=== PATIENT | male | born 1945 | race Caucasian/White ===

== ENCOUNTER 2016-12-11 10:14 | Outpatient (CLI) | payer MEDICARE, BC ==
[2016-12-11 18:33] LABS: BASOPHILS # (AUTO) 0.1 10^3/uL (0.0-0.1); BASOPHILS % (AUTO) 1.9 %; EOSINOPHILS # (AUTO) 0.2 10^3/uL (0.0-0.7); EOSINOPHILS % (AUTO) 3.9 %; HCT - HEMATOCRIT 46.7 % (42.0-52.0); HGB - HEMOGLOBIN 15.9 g/dL (14.0-18.0); LYMPHOCYTES # (AUTO) 1.7 10^3/uL (1.5-3.5); LYMPHOCYTES % (AUTO) 36.5 %; MEAN CORPUSCULAR HEMOGLOBIN 31.7 pg (27.0-31.0); MEAN CORPUSCULAR HGB CONC 34.2 g/dL (32.0-36.0); MEAN CORPUSCULAR VOLUME 92.9 fL (80.0-94.0); MEAN PLATELET VOLUME 8.9 fL (7.4-11.4); MONOCYTES # (AUTO) 0.4 10^3/uL (0.0-1.0); MONOCYTES % (AUTO) 9.1 %; NEUTROPHILS # (AUTO) 2.3 10^3/uL (1.5-6.6); NEUTROPHILS % (AUTO) 48.6 %; NUCLEATED RED BLOOD CELLS AUTO 0.2 /100WBC; RED BLOOD COUNT 5.03 10^6/uL (4.70-6.10); RED CELL DISTRIBUTION WIDTH 14.1 % (12.0-15.0); UNCORRECTED WHITE BLOOD COUNT 4.7 x10^3/uL; WHITE BLOOD COUNT 4.7 x10^3/uL (4.8-10.8)
[2016-12-11 18:52] LABS: ALBUMIN/GLOBULIN RATIO 1.6 (1.0-2.2); BILIRUBIN,TOTAL 1.2 mg/dL (0.2-1.0); BUN - BLOOD UREA NITROGEN 21 mg/dL (6-20); CALCIUM 9.3 mg/dL (8.5-10.3); CARBON DIOXIDE - CO2 27 mmol/L (21-32); CHLORIDE 102 mmol/L (101-111); CHOL/HDL RATIO 4.3 (<5.0); CHOLESTEROL 255 mg/dL; CREATININE 0.8 mg/dL (0.6-1.2); GFR - MDRD 96 (>89); GLUCOSE 142 mg/dL (70-100); HDL CHOLESTEROL 59 mg/dL; LDL/HDL RATIO 2.9 (<3.6); POTASSIUM 4.2 mmol/L (3.5-5.0); SODIUM 138 mmol/L (135-145); TRIGLYCERIDES 121 mg/dL; VLDL CHOLESTEROL 24 mg/dL
[2016-12-11 19:21] LABS: HEMOGLOBIN A1C 0.84 g/dL
== END 2016-12-11 10:15 | disposition home or self-care (01) ==
LOC: LAB.F 10:14
PROVIDERS: ATTEND Nurse Practitioner Family
DX: E11.9 Type 2 diabetes mellitus without complications (principal); C61 Malignant neoplasm of prostate; E78.5 Hyperlipidemia, unspecified; I10 Essential (primary) hypertension
CPT/HCPCS: 36415; 80053; 80061; 82043; 83036; 84443; 85025; G0103; 84153

== ENCOUNTER 2017-01-23 15:34 | Outpatient (CLI) | payer MEDICARE, BC ==
[2017-01-23 15:59] LABS: BASOPHILS # (AUTO) 0.1 10^3/uL (0.0-0.1); BASOPHILS % (AUTO) 1.8 %; EOSINOPHILS # (AUTO) 0.1 10^3/uL (0.0-0.7); EOSINOPHILS % (AUTO) 2.1 %; HCT - HEMATOCRIT 41.6 % (42.0-52.0); HGB - HEMOGLOBIN 13.9 g/dL (14.0-18.0); LYMPHOCYTES # (AUTO) 1.6 10^3/uL (1.5-3.5); LYMPHOCYTES % (AUTO) 32.2 %; MEAN CORPUSCULAR HEMOGLOBIN 31.1 pg (27.0-31.0); MEAN CORPUSCULAR HGB CONC 33.5 g/dL (32.0-36.0); MEAN CORPUSCULAR VOLUME 92.7 fL (80.0-94.0); MEAN PLATELET VOLUME 7.9 fL (7.4-11.4); MONOCYTES # (AUTO) 0.4 10^3/uL (0.0-1.0); MONOCYTES % (AUTO) 8.2 %; NEUTROPHILS # (AUTO) 2.8 10^3/uL (1.5-6.6); NEUTROPHILS % (AUTO) 55.7 %; RED BLOOD COUNT 4.49 10^6/uL (4.70-6.10); RED CELL DISTRIBUTION WIDTH 14.4 % (12.0-15.0); UNCORRECTED WHITE BLOOD COUNT 5.1 x10^3/uL; WHITE BLOOD COUNT 5.1 x10^3/uL (4.8-10.8)
[2017-01-23 16:07] LABS: CALCIUM 9.3 mg/dL (8.5-10.3); POTASSIUM 4.1 mmol/L (3.5-5.0)
== END 2017-01-23 15:35 | disposition home or self-care (01) ==
LOC: LAB 15:34
PROVIDERS: ATTEND Nurse Practitioner Family
DX: I10 Essential (primary) hypertension (principal)
CPT/HCPCS: 36415; 80048; 85025; 85610

== ENCOUNTER 2017-08-14 09:18 | Outpatient (CLI) | payer MEDICARE, BC ==
[2017-08-14 15:28] LABS: HB2 TOTAL 16.4 g/dL; HEMOGLOBIN A1C 0.69 g/dL
== END 2017-08-14 09:19 | disposition home or self-care (01) ==
LOC: LAB.F 09:18
PROVIDERS: ATTEND Nurse Practitioner Family
DX: E11.9 Type 2 diabetes mellitus without complications (principal)
CPT/HCPCS: 36415; 83036

== ENCOUNTER 2018-03-31 08:38 | Outpatient (CLI) | payer MEDICARE, BC ==
[2018-03-31 10:35] LABS: BASOPHILS # (AUTO) 0.1 10^3/uL (0.0-0.1); BASOPHILS % (AUTO) 1.3 %; EOSINOPHILS # (AUTO) 0.1 10^3/uL (0.0-0.7); EOSINOPHILS % (AUTO) 2.8 %; HGB - HEMOGLOBIN 14.8 g/dL (14.0-18.0); LYMPHOCYTES # (AUTO) 1.7 10^3/uL (1.5-3.5); LYMPHOCYTES % (AUTO) 38.5 %; MEAN CORPUSCULAR HEMOGLOBIN 31.7 pg (27.0-31.0); MEAN CORPUSCULAR HGB CONC 34.5 g/dL (32.0-36.0); MEAN PLATELET VOLUME 8.8 fL (7.4-11.4); MONOCYTES # (AUTO) 0.4 10^3/uL (0.0-1.0); MONOCYTES % (AUTO) 9.2 %; NEUTROPHILS # (AUTO) 2.1 10^3/uL (1.5-6.6); NEUTROPHILS % (AUTO) 48.2 %; PLT - PLATELET COUNT 203 10^3/uL (130-450); RED BLOOD COUNT 4.66 10^6/uL (4.70-6.10); RED CELL DISTRIBUTION WIDTH 13.4 % (12.0-15.0); WHITE BLOOD COUNT 4.4 x10^3/uL (4.8-10.8)
[2018-03-31 10:46] LABS: ALBUMIN 4.2 g/dL (3.2-5.5); ALBUMIN/GLOBULIN RATIO 1.6 (1.0-2.2); ALKALINE PHOSPHATASE 67 IU/L (42-121); ALT ALANINE AMINOTRANSFERASE 30 IU/L (10-60); AST ASPARTATE AMINOTRANSFERASE 23 IU/L (10-42); BILIRUBIN,TOTAL 0.9 mg/dL (0.2-1.0); BUN - BLOOD UREA NITROGEN 20 mg/dL (6-20); CALCIUM 8.9 mg/dL (8.5-10.3); CARBON DIOXIDE - CO2 28 mmol/L (21-32); CHLORIDE 101 mmol/L (101-111); CHOL/HDL RATIO 4.6 (<5.0); CHOLESTEROL 260 mg/dL; CREATININE 0.9 mg/dL (0.6-1.2); GFR - MDRD 83 (>89); GLUCOSE 146 mg/dL (70-100); HDL CHOLESTEROL 57 mg/dL; LDL CHOLESTEROL,CALCULATED 172 mg/dL; SODIUM 134 mmol/L (135-145); TOTAL PROTEIN 6.8 g/dL (6.7-8.2); VLDL CHOLESTEROL 31 mg/dL
[2018-03-31 10:54] LABS: HB2 TOTAL 16.5 g/dL; HEMOGLOBIN A1C 0.77 g/dL; HEMOGLOBIN A1C % 6.4 % (4.6-6.2)
== END 2018-03-31 08:39 | disposition home or self-care (01) ==
LOC: LAB.F 08:38
PROVIDERS: ATTEND Nurse Practitioner Family
DX: E11.9 Type 2 diabetes mellitus without complications (principal); C61 Malignant neoplasm of prostate; E78.5 Hyperlipidemia, unspecified; I10 Essential (primary) hypertension; D64.9 Anemia, unspecified
CPT/HCPCS: 36415; 80053; 80061; 82043; 83036; 83721; 84153; 84443; 85025

== ENCOUNTER 2019-01-25 07:38 | Outpatient (CLI) | payer MEDICARE, BC ==
[2019-01-25 08:14] LABS: CHOL/HDL RATIO 4.3 (<5.0); CHOLESTEROL 240 mg/dL; HDL CHOLESTEROL 56 mg/dL; LDL CHOLESTEROL,CALCULATED 160 mg/dL; LDL/HDL RATIO 2.9 (<3.6); VLDL CHOLESTEROL 24 mg/dL
[2019-01-25 08:18] LABS: HB2 TOTAL 15.9 g/dL; HEMOGLOBIN A1C 0.67 g/dL
== END 2019-01-25 07:39 | disposition home or self-care (01) ==
LOC: LAB 07:38
PROVIDERS: ATTEND Registered Nurse
DX: E11.9 Type 2 diabetes mellitus without complications (principal)
CPT/HCPCS: 36415; 80061; 83036; 83721

== ENCOUNTER 2019-04-10 18:23 | Inpatient (IN) | payer MEDICARE, BC ==
[2019-04-10] MEDS ORDERED: LIDOCAINE VISCOUS 2% 15 ML UDC MM STA (18:57)
[2019-04-10] MEDS ORDERED: SUCRALFATE 1 GM/10 ML UDC PO STA (18:57)
[2019-04-10] MEDS ORDERED: MAG HYDROX/AL HYDROX/SIMETH 30 ML UDC PO STA (18:57)
[2019-04-10] MEDS ORDERED: ONDANSETRON ODT 4 MG TABLET TL STA (18:57)
[2019-04-10 19:19] LABS: BASOPHILS # (AUTO) 0.1 10^3/uL (0.0-0.1); BASOPHILS % (AUTO) 0.4 %; EOSINOPHILS % (AUTO) 0.1 %; HGB - HEMOGLOBIN 15.2 g/dL (14.0-18.0); LYMPHOCYTES # (AUTO) 1.3 10^3/uL (1.5-3.5); LYMPHOCYTES % (AUTO) 10.5 %; MEAN CORPUSCULAR HEMOGLOBIN 30.2 pg (27.0-31.0); MEAN CORPUSCULAR HGB CONC 33.2 g/dL (32.0-36.0); MEAN CORPUSCULAR VOLUME 90.9 fL (80.0-94.0); MONOCYTES # (AUTO) 0.7 10^3/uL (0.0-1.0); MONOCYTES % (AUTO) 5.7 %; NEUTROPHILS # (AUTO) 10.2 10^3/uL (1.5-6.6); NEUTROPHILS % (AUTO) 82.7 %; PLT - PLATELET COUNT 249 10^3/uL (130-450); RED BLOOD COUNT 5.04 10^6/uL (4.70-6.10); RED CELL DISTRIBUTION WIDTH 13.2 % (12.0-15.0); WHITE BLOOD COUNT 12.3 x10^3/uL (4.8-10.8)
[2019-04-10 19:27] LABS: BILIRUBIN,URINE NEGATIVE (NEGATIVE); GLUCOSE, URINE (UA) 250 mg/dL (NEGATIVE); KETONES,URINE (UA) 15 mg/dL (NEGATIVE); LEUKOCYTE ESTERASE, URINE NEGATIVE (NEGATIVE); NITRITE,URINE NEGATIVE (NEGATIVE); OCCULT BLOOD,URINE NEGATIVE (NEGATIVE); PROTEIN,URINE NEGATIVE (NEGATIVE); UROBILINOGEN,URINE 0.2 (NORMAL) E.U./dL (NORMAL)
[2019-04-10 19:31] LABS: CLARITY,URINE CLEAR (CLEAR)
[2019-04-10 19:48] LABS: ALBUMIN 4.2 g/dL (3.2-5.5); ALBUMIN/GLOBULIN RATIO 1.6 (1.0-2.2); BILIRUBIN,TOTAL 0.9 mg/dL (0.2-1.0); CALCIUM 9.2 mg/dL (8.5-10.3); CREATININE 0.9 mg/dL (0.6-1.2); TOTAL PROTEIN 6.8 g/dL (6.7-8.2)
[2019-04-10] MEDS ORDERED: IOVERSOL 320 100 ML VIAL IVP ONE ×2 (20:02→20:40)
--- NOTE | 2019-04-10 20:33 | ED Physician Documentation ---
History of Present Illness - Stated complaint Stated Complaint: AB PX - Chief complaint Chief Complaint: Abd Pain - History obtained from History obtained from: Patient - History of Present Illness Timing: Today Pain level max: 5 Pain level now: 4 Improved by: nothing Worsened by: eating, drinking - Additonal information Additional information: epigastric pain, vomiting and diarrhea today. Review of Systems Ten Systems: 10 systems reviewed and negative Constitutional: denies: Fever, Chills Nose: denies: Rhinorrhea / runny nose, Congestion GI: denies: Vomiting, Diarrhea Skin: denies: Rash Musculoskeletal: denies: Neck pain, Back pain Neurologic: denies: Headache PD PAST MEDICAL HISTORY - Past Medical History Past Medical History: Yes Cardiovascular: Hypertension Respiratory: None Endocrine/Autoimmune: None GI: None : None HEENT: None Psych: None Musculoskeletal: None Derm: None - Past Surgical History General: Colonoscopy Ortho: Other HEENT: Tonsil/Adenoidectomy - Present Medications Home Medications: Ambulatory Orders Medication Instructions Recorded Confirmed Felodipine [Felodipine ER] 5 mg PO DAILY 03/15/15 12/11/15 Lisinopril 20 mg PO DAILY 03/15/15 12/11/15 Metoprolol Succinate 50 mg PO DAILY 03/15/15 12/11/15 Lidocaine Patch 5% [Lidoderm Patch] 1 each TOP DAILY PRN #10 patch 12/11/15 - Allergies Allergies/Adverse Reactions: Allergies Allergy/AdvReac Type Severity Reaction Status Date / Time No Known Drug Allergies Allergy Verified 04/10/19 18:26 - Social History Does the pt smoke?: No Smoking Status: Never smoker Does the pt drink ETOH?: Yes Does the pt have substance abuse?: No - Immunizations Immunizations are current?: Yes PD ED PE NORMAL - Vitals Vital signs reviewed: Yes - General General: Alert and oriented X 3, No acute distress, Well developed/nourished - HEENT HEENT: PERRL, Moist mucous membranes - Neck Neck: Supple, no meningeal sign - Cardiac Cardiac: RRR, Strong equal pulses - Respiratory Respiratory: No respiratory distress, Clear bilaterally - Abdomen Abdomen: Soft, Non distended, Other (Tender to palpation epigastric without peritoneal signs) - Derm Derm: Warm and dry, No rash - Extremities Extremities: No edema - Neuro Neuro: Alert and oriented X 3 - Psych Psych: Normal mood, Normal affect Results - Vitals Vitals: Vital Signs - 24 hr 04/10/19 04/10/19 18:26 21:06 Temperature 36.8 C Heart Rate 58 L 62 Respiratory 18 15 Rate Blood Pressure 156/67 H 179/76 H O2 Saturation 98 95 Oxygen O2 Source Room air - Labs Labs: Laboratory Tests 04/10/19 04/10/19 04/10/19 18:40 18:40 19:13 WBC 12.3 H RBC 5.04 Hgb 15.2 Hct 45.8 MCV 90.9 MCH 30.2 MCHC 33.2 RDW 13.2 Plt Count 249 MPV 11.0 Neut # (Auto) 10.2 H Lymph # (Auto) 1.3 L [place] # (Auto) 0.7 Eos # (Auto) 0.0 Baso # (Auto) 0.1 Absolute Nucleated RBC 0.00 Nucleated RBC % 0.0 Sodium 136 Potassium 3.8 Chloride 99 L Carbon Dioxide 25 Anion Gap 12.0 BUN 19 Creatinine 0.9 Estimated GFR (MDRD) 83 L Glucose 252 H Calcium 9.2 Total Bilirubin 0.9 AST 19 ALT 24 Alkaline Phosphatase 68 Total Protein 6.8 Albumin 4.2 Globulin 2.6 Albumin/Globulin Ratio 1.6 Lipase 902 H Urine Color YELLOW Urine Clarity CLEAR Urine pH 5.0 Ur Specific [place] 1.025 Urine Protein NEGATIVE Urine Glucose (UA) 250 H Urine Ketones 15 H Urine Occult Blood NEGATIVE Urine Nitrite NEGATIVE Urine Bilirubin NEGATIVE Urine Urobilinogen 0.2 (NORMAL) Ur Leukocyte Esterase NEGATIVE Ur Microscopic Review NOT INDICATED Urine Culture Comments NOT INDICATED - Rads (name of study) CT abdomen pelvis Radiology: Prelim report reviewed, EMP read contemporaneously, See rad report (1. Findings consistent with acute interstitial edematous pancreatitis. The re lative hypoenhancement of the pancreatic head and neck may reflect impending necrosis. 2. Inflammatory ascites extends into the mesentery, right paracolic gutter and into the level of the right pelvic sidewall. No discrete fluid collections are seen. 3. Likely reactive adjacent duodenitis noted. ) PD MEDICAL DECISION MAKING - ED course Complexity details: reviewed results, re-evaluated patient, considered differential, d/w patient ED course: Patient presents to the emergency department was found to have pancreatitis. Likely secondary to his lisinopril. No evidence of gallbladder disease. No evidence of gallstones. He is nonalcoholic. Does not drink heavily. Pain well controlled. We will admit the patient for further care. Discussed the case with Dr. Bailon, hospitalist who accepts This document was made in part using voice recognition software. While efforts are made to proofread this document, sound alike and grammatical errors may occur. Departure - Departure Disposition: 66 [facility] DC/Xfer Clinical Impression: Pancreatitis Qualifiers: Chronicity: acute Pancreatitis type: drug induced Acute pancreatitis complication: unspecified Qualified Code(s): K85.30 - Drug induced acute pancreatitis without necrosis or infection Condition: Stable Discharge Date/Time: 04/10/19 22:25
--- NOTE | 2019-04-10 21:02 | CT Report ---
Reason: abd pain, pancreatitis Procedure Date: 04/10/2019 Accession Number: [id number] / [id number] Procedure: CT - Abdomen/Pelvis W CPT Code: Final Report FULL RESULT: EXAM: CT ABDOMEN AND PELVIS EXAM DATE: 04/10/2019 08:24 PM. CLINICAL HISTORY: Abd pain, pancreatitis. COMPARISONS: None. TECHNIQUE: Routine helical CT imaging was performed through the abdomen and pelvis. IV contrast: 100 ML OPTIRAY 320. Enteric contrast: No. Reconstructions: Coronal and sagittal. In accordance with CT protocol optimization, one or more of the following dose reduction techniques were utilized for this exam: automated exposure control, adjustment of mA and/or KV based on patient size, or use of iterative reconstructive technique. FINDINGS: Lung Bases: Unremarkable. Liver: No focal liver lesions seen. Gallbladder/Bile Ducts: Unremarkable gallbladder without radiopaque gallstones on CT. No biliary dilation. Spleen: Small hypoattenuating inferior splenic lesion could reflect a small benign angiomatous lesion or cyst. Small accessory splenule noted. Pancreas: Peripancreatic fluid and fat stranding is consistent with acute pancreatitis. No ductal dilation. No discrete fluid collections. Mild hypoattenuation of the pancreatic head and neck is seen. No intrapancreatic calcifications. Adrenal Glands: Normal. Kidneys: Small hypoattenuating cortical lesions are consistent with cysts.. No masses or hydronephrosis. Peritoneal Cavity/Bowel: Unremarkable stomach. Wall thickening and hyperemia of the duodenum likely reflects reactive inflammation. Small bowel loops are normal in caliber without signs of wall thickening or hyperemia. Appendix appears normal. Mesenteric and right paracolic gutter ascites extending to the pelvic sidewall likely reflect reactive inflammatory ascites from pancreatitis. No pneumoperitoneum. Pelvic Organs: Unremarkable urinary bladder for degree of distention. Prostate is not seen, possibly surgically absent. No enlarged pelvic lymph nodes. Vasculature: Atherosclerotic calcification. No aneurysms. Bones: Degenerative disk disease in the spine. Lucent lesion in L2 is possibly a vertebral hemangioma. Other: Small fat-containing left inguinal hernia. IMPRESSION: 1. Findings consistent with acute interstitial edematous pancreatitis. The relative hypoenhancement of the pancreatic head and neck may reflect impending necrosis. 2. Inflammatory ascites extends into the mesentery, right paracolic gutter and into the level of the right pelvic sidewall. No discrete fluid collections are seen. 3. Likely reactive adjacent duodenitis noted. RADIA
[2019-04-10] MEDS ORDERED: SODIUM CHLORIDE 0.9% 1,000 ML IV ONE ×3 (21:04→22:37)
[2019-04-10] MEDS ORDERED: HYDROmorphone 1 MG/ML CARPUJECT IVP STA (21:04)
[2019-04-10] MEDS ORDERED: ONDANSETRON 4 MG/2 ML VIAL IVP STA (21:04)
--- NOTE | 2019-04-10 21:38 | HISTORY & PHYSICAL EXAMINATION ---
Chief Complaint - Chief Complaint Chief Complaint: epigastric abd pain, n/v History of Present Illness - Admitted From Admitted From:: [facility] - History Obtained From Records Reviewed: yes History obtained from: patient - History of Present Illness HPI Comment/Other: Patient is a 74 y/o male who presented to the ED with epigastric pain, nausea an d vomiting. His symptoms started around noon today while he was watching TV. He had just eaten some cheese and bologna prior to onset of his symptoms. In the morning he had taking his grandson to a breakfast event they had at his school. He had pancakes and sausage. He denied any recent trauma or travel. He drinks occasionally but not significantly. He denied chest pain, dyspnea, fever or chills. He had 2 episodes of diarrhea. In the ED work up included a CT of the abdomen/ pelvis which showed acute interstitial pancreatitis with possibility of impending necrosis. Lipase level was 902. At the time of my exam his pain was 6/10. As a result of his presentation, he is being admitted for further treatment. 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 father: Acoholism. Liver cirrhosis. at age 60 Living arrangement: At home Living Situation: With family Social History Notes: He denies tobacco or illicit drug use. He drinks occasionally - POLST Patient has POLST: No POLST Status: Full Code Meds/Allgy - Home Medications Home Medications: Ambulatory Orders Medication Instructions Recorded Confirmed Felodipine [Felodipine ER] 5 mg PO DAILY 03/15/15 12/11/15 Lisinopril 20 mg PO DAILY 03/15/15 12/11/15 Metoprolol Succinate 50 mg PO DAILY 03/15/15 12/11/15 Lidocaine Patch 5% [Lidoderm Patch] 1 each TOP DAILY PRN #10 patch 12/11/15 - Allergies Allergies/Adverse Reactions: Allergies Allergy/AdvReac Type Severity Reaction Status Date / Time No Known Drug Allergies Allergy Verified 04/10/19 18:26 Review of Systems - Constitutional Constitutional: denies: Fatigue, Fever, Chills - Eyes Eyes: denies: Pain, Vision loss, Dipolpia - Ears, Nose & Throat Ears, Nose & Throat: denies: Vertigo, Sore throat - Cardiovascular Cariovascular: denies: Irregular heart rate, Chest pain, Edema, Lightheadedness, Syncope, Exertional dyspnea, Decr. exercise tolerance - Respiratory Respiratory: denies: Cough, Wheezing, SOB at rest, SOB with exertion - Gastrointestinal Gastrointestinal: reports: Abdominal pain, Diarrhea, Nausea, Vomiting. denies: Abdominal distention, Coffee grounds emesis, Reflux/heartburn - Genitourinary Genitourinary: denies: Dysuria, Frequency, Urgency, Hematuria, Incontinence, Flank pain, Nocturia, Urethral discharge - Musculoskeletal Musculoskeletal: denies: Muscle pain, Back pain, Muscle aches - Integumentary Integumentary: denies: Rash, Pruritis, Lesions, Dryness - Neurological Neurological: denies: General weakness, Focal weakness, Headache, Dizziness - Psychiatric Psychiatric: denies: Depression, Anxiety - Endocrine Endocrine: denies: Polyuria, Polydypsia - Hematologic/Lymphatic Hematologic/Lymphatic: denies: Anemia Prior Level of Functionality: Patient is independent of activities of daily living Exam - Vital Signs Vital Signs: Vital Signs x48h Temp Pulse Resp BP Pulse Ox 04/10/19 21:06 62 15 179/76 H 95 04/10/19 18:26 36.8 C 58 L 18 156/67 H 98 - Physical Exam General Appearance: positive: Alert, Moderate distress Eyes Bilateral: positive: Normal inspection, PERRL, EOMI ENT: positive: ENT inspection nml, No signs of dehydration Neck: positive: Nml inspection, No JVD, Trachea midline Respiratory: positive: Chest non-tender, No respiratory distress, Breath sounds nml. negative: Wheezes, Rales, Rhonchi Cardiovascular: positive: Regular rate & rhythm Abdomen: positive: Tenderness. negative: Guarding, Rebound Back: positive: Nml inspection Skin: positive: Color nml, No rash, Warm, Dry Extremities: positive: Non-tender, Full ROM, Nml appearance, No pedal edema Neurologic/Psychiatric: positive: Oriented x3, Mood/affect nml Conclusion/Plan - Problem List (1) Acute pancreatitis Conclusion/Plan: Etiology undetermined. However medication (lisinopril) suspected Will hold for now. No biliary dilation noted. Lipid panel pending. Concern for pending necrosis. Blood cultures pending. Empiric antibiotics (Zosyn) IV hydration with normal saline. NPO. Zofran IV for nausea Trend lipase. Monitor glucose and Calcium level Qualifiers: Acute pancreatitis complication: unspecified (2) Hypertension Conclusion/Plan: Continue felodipine and metoprolol Hold lisinopril for now. (3) Prediabetes Conclusion/Plan: Will hold metformin. Will monitor. If needed will order SSI. - Lab Results Fish Bones: 04/10/19 18:40 04/10/19 18:40 Core Measures - DVT/VTE - Prophylaxis VTE/DVT Device ordered at admit?: Yes
[2019-04-10] MEDS ORDERED: ONDANSETRON 4 MG/2 ML VIAL IVP PRN (22:35)
[2019-04-10] MEDS: SODIUM CHLORIDE 0.9% 1,000 ML IV SCH (22:43)
[2019-04-10] MEDS: HYDROmorphone 0.5 MG/0.5 ML SYRINGE IVP PRN (22:48)
[2019-04-10] MEDS ORDERED: PIPERACILLIN/TAZOBACTAM 3.375 GM in SODIUM CHLORIDE 0.9% MINIBAG 100 ML IV ONE (23:30)
[2019-04-11] MEDS: HYDROmorphone 0.5 MG/0.5 ML SYRINGE IVP PRN (00:55)
[2019-04-11] MEDS: HYDROmorphone 1 MG/ML CARPUJECT IVP PRN ×8 (02:52→22:12)
[2019-04-11] MEDS: PIPERACILLIN/TAZOBACTAM 3.375 GM in SODIUM CHLORIDE 0.9% MINIBAG 100 ML IV SCH ×3 (02:54→18:55)
[2019-04-11] MEDS ORDERED: METOPROLOL 5 MG/5 ML VIAL IVP ONE (03:00)
[2019-04-11] MEDS: SODIUM CHLORIDE FLUSH 0.9% 10 ML SYRINGE IVP SCH ×3 (04:31→15:41)
[2019-04-11 05:02] LABS: BASOPHILS % (AUTO) 0.3 %; EOSINOPHILS # (AUTO) 0.1 10^3/uL (0.0-0.7); EOSINOPHILS % (AUTO) 0.8 %; HGB - HEMOGLOBIN 15.9 g/dL (14.0-18.0); LYMPHOCYTES # (AUTO) 0.6 10^3/uL (1.5-3.5); LYMPHOCYTES % (AUTO) 4.3 %; MEAN CORPUSCULAR HEMOGLOBIN 29.7 pg (27.0-31.0); MEAN CORPUSCULAR HGB CONC 32.8 g/dL (32.0-36.0); MEAN CORPUSCULAR VOLUME 90.7 fL (80.0-94.0); MONOCYTES # (AUTO) 0.8 10^3/uL (0.0-1.0); NEUTROPHILS # (AUTO) 12.3 10^3/uL (1.5-6.6); NEUTROPHILS % (AUTO) 88.1 %; PLT - PLATELET COUNT 232 10^3/uL (130-450); RED BLOOD COUNT 5.35 10^6/uL (4.70-6.10); RED CELL DISTRIBUTION WIDTH 13.2 % (12.0-15.0)
[2019-04-11 05:14] LABS: ALBUMIN/GLOBULIN RATIO 1.7 (1.0-2.2); BILIRUBIN,TOTAL 1.1 mg/dL (0.2-1.0); CALCIUM 8.9 mg/dL (8.5-10.3); CREATININE 0.9 mg/dL (0.6-1.2); TOTAL PROTEIN 6.4 g/dL (6.7-8.2)
[2019-04-11 05:15] LABS: CHOL/HDL RATIO 3.9 (<5.0); CHOLESTEROL 262 mg/dL; HDL CHOLESTEROL 68 mg/dL; LDL CHOLESTEROL,CALCULATED 182 mg/dL; LDL/HDL RATIO 2.7 (<3.6); VLDL CHOLESTEROL 12 mg/dL
[2019-04-11] MEDS: PANTOPRAZOLE 40 MG VIAL IVP SCH (06:14)
[2019-04-11] MEDS: SODIUM CHLORIDE FLUSH 0.9% 10 ML SYRINGE IVP PRN ×2 (06:15→19:05)
[2019-04-11] MEDS: SODIUM CHLORIDE 0.9% 1,000 ML IV SCH (07:02)
[2019-04-11] MEDS ORDERED: MORPHINE 2 MG/ML CARPUJECT IVP PRN (07:35)
[2019-04-11] MEDS: METOPROLOL SUCCINATE 50 MG TABLET PO SCH (08:27)
[2019-04-11] MEDS: FELODIPINE ER 2.5 MG TABLET PO SCH (08:27)
[2019-04-11] MEDS: SIMETHICONE 40 MG/0.6 ML 30 ML BOTTLE PO PRN ×2 (08:28→15:48)
[2019-04-11] MEDS: INSULIN REGULAR HUMAN 300 UNIT/3 ML VIAL SUBQ SCH ×4 (08:51→23:55)
--- NOTE | 2019-04-11 09:21 | PROVIDER PROGRESS NOTE ---
Assessment/Plan - Problem List (1) Acute pancreatitis Qualifiers: Acute pancreatitis complication: unspecified Assessment/Plan: He ate a fatty meal preceding this. He has never had pancreatitis in the past, he reports. Serum triglyceride level was low at 60. The patient is not a cigarette smoker, but did admit to alcohol use: 2 beers/day now, but was heavier drinker 2-[address] imaging was read as "impending necrosis" of the pancreas. His WBC did increase from 12 to 14. He was put on empiric iv antibx using Zosyn. Lipase has already decreased from 900 to 300 Pain is no better on Morphine compared to Dialudid, which was tried. Will order Dilaudid at a higher dose for pain control. Continue NPO except meds, and iv hydration, prn antiemetics Follow daily Lipase level, CBC and LFTs (2) Hypertension Assessment/Plan: Continue his po meds (Felodipine and Metoprolol were home meds) and extra iv prn meds (3) Alcohol use Assessment/Plan: The patient reported to me that he drinks only beer, 2 drinks a day, and decreased from heavier drinking 2-3 years ago. LFTs are normal. Will check INR Will change fluids to a banana bag for 1 day. Will order a CIWA protocol and prn Ativan, in case of alcohol withdrawal, which could start today or tomorrow. (4) Elevated glucose level Assessment/Plan: All his glu checks have been >240. The admittig Second Cutter mentioned holding Metformin for Borderline DM diagosis, but I don't see that on his MedList Coverage with ss Insulin and accuchecks have been ordered Will check an A1c. - Current Meds Current Meds: Current Medications Generic Name Dose Route Start Last Admin Trade Name Freq PRN Reason Stop Dose Admin Felodipine 5 mg 04/11/19 09:00 04/11/19 08:27 [place] PO 5 mg DAILY THERESA Administration Sodium Chloride 1,000 mls @ 125 mls/hr 04/10/19 22:00 04/11/19 07:02 Normal Saline 0.9% IV 125 mls/hr .Q8H THERESA Administration Piperacillin Sod/Tazobactam 100 mls @ 25 mls/hr 04/11/19 03:00 04/11/19 06:57 Sod 3.375 gm/ Sodium Chloride IV Infused Q8H THERESA Infusion Insulin Human Regular 1 - 5 unit 04/11/19 07:26 04/11/19 08:51 Humulin R SUBQ 4 unit Q6HR THERESA Administration Protocol Metoprolol Succinate 50 mg 04/11/19 09:00 04/11/19 08:27 Toprol Xl PO 50 mg DAILY THERESA Administration Ondansetron HCl 4 mg 04/10/19 22:35 04/11/19 00:56 Zofran Inj IVP 4 mg Q4H PRN Administration Nausea / Vomiting Pantoprazole Sodium 40 mg 04/11/19 07:00 04/11/19 06:14 Protonix IVP 40 mg QDAC THERESA Administration Simethicone 80 mg 04/11/19 08:00 04/11/19 08:28 PO 80 mg Q6HR PRN Administration Gas Sodium Chloride 10 ml 04/10/19 21:31 04/11/19 06:15 Normal Saline Flush 0.9% IVP 10 ml PRN PRN Administration NEEDED PER PROVIDER ORDERS Sodium Chloride 10 ml 04/11/19 01:00 04/11/19 08:47 Normal Saline Flush 0.9% IVP Not Given 0100,0900,1700 THERESA - Lab Result Fish Bone Diagrams: 04/11/19 04:45 04/11/19 04:45 - Additional Planning My Orders: My Active Orders 04/11/19 09:17 HYDROmorphone INJ CARP [Dilaudid Inj Carp] 2 mg IVP Q2HR PRN Subjective - Subjective Patient Reports: Abdominal Pain Objective Vital Signs: Vital Signs - 24 hr 04/10/19 04/10/19 04/10/19 18:26 21:06 22:38 Temperature 36.8 C 36.5 C Heart Rate 58 L 62 Heart Rate [ 63 Brachial] Respiratory 18 15 18 Rate Blood Pressure 156/67 H 179/76 H Blood Pressure 185/94 H [Left Brachial artery] O2 Saturation 98 95 97 04/10/19 04/10/19 04/11/19 22:48 23:35 01:45 Temperature 36.4 C L Heart Rate Heart Rate [ 70 Brachial] Respiratory 16 Rate Blood Pressure Blood Pressure 146/76 H 181/85 H 180/83 H [Left Brachial artery] O2 Saturation 94 04/11/19 04/11/19 04/11/19 01:50 02:18 02:20 Temperature Heart Rate Heart Rate [ 71 71 Brachial] Respiratory Rate Blood Pressure 183/82 H Blood Pressure 183/45 H 184/78 H [Left Brachial artery] O2 Saturation 04/11/19 04/11/19 04/11/19 02:25 02:30 02:35 Temperature Heart Rate Heart Rate [ 65 64 63 Brachial] Respiratory Rate Blood Pressure Blood Pressure 188/83 H 186/83 H 187/82 H [Left Brachial artery] O2 Saturation 04/11/19 04/11/19 04/11/19 02:50 03:05 03:20 Temperature Heart Rate Heart Rate [ 66 69 68 Brachial] Respiratory Rate Blood Pressure Blood Pressure 182/84 H 176/80 H 176/80 H [Left Brachial artery] O2 Saturation 04/11/19 04/11/19 04/11/19 04:21 05:15 07:39 Temperature 36.5 C 36.7 C Heart Rate Heart Rate [ 69 71 82 Brachial] Respiratory 18 20 Rate Blood Pressure Blood Pressure 184/85 H 160/78 H 185/88 H [Left Brachial artery] O2 Saturation 94 94 Oxygen O2 Source Room air I&O (Last 24 Hrs): Intake and Output Totals x24h 04/09/19 04/10/19 04/11/19 23:59 23:59 23:59 Intake Total 937.690 3855.833 Balance 228.403 5774.833 General: Alert, Oriented x3 HEENT: Mucous membr. moist/pink Neck: Supple, No JVD Neuro: Non Focal Cardiovascular: Regular rate Respiratory: No respiratory distress Abdomen: Soft, Other (Mildly distended, ecreased bowel sounds, moderately tender to palpation in epigastrium) Extremities: No edema - Results Results: Laboratory Results WBC 14.0 x10^3/uL (4.8-10.8) H 04/11/19 04:45 RBC 5.35 10^6/uL (4.70-6.10) 04/11/19 04:45 Hgb 15.9 g/dL (14.0-18.0) 04/11/19 04:45 Hct 48.5 % (42.0-52.0) 04/11/19 04:45 MCV 90.7 fL (80.0-94.0) 04/11/19 04:45 MCH 29.7 pg (27.0-31.0) 04/11/19 04:45 MCHC 32.8 g/dL (32.0-36.0) 04/11/19 04:45 RDW 13.2 % (12.0-15.0) 04/11/19 04:45 Plt Count 232 10^3/uL (130-450) 04/11/19 04:45 MPV 10.0 fL (7.4-11.4) 04/11/19 04:45 Neut # (Auto) 12.3 10^3/uL (1.5-6.6) H 04/11/19 04:45 Lymph # (Auto) 0.6 10^3/uL (1.5-3.5) L 04/11/19 04:45 [place] # (Auto) 0.8 10^3/uL (0.0-1.0) 04/11/19 04:45 Eos # (Auto) 0.1 10^3/uL (0.0-0.7) 04/11/19 04:45 Baso # (Auto) 0.0 10^3/uL (0.0-0.1) 04/11/19 04:45 Absolute Nucleated RBC 0.00 x10^3/uL 04/11/19 04:45 Nucleated RBC % 0.0 /100WBC 04/11/19 04:45 Sodium 140 mmol/L (135-145) 04/11/19 04:45 Potassium 3.9 mmol/L (3.5-5.0) 04/11/19 04:45 Chloride 102 mmol/L (101-111) 04/11/19 04:45 Carbon Dioxide 26 mmol/L (21-32) 04/11/19 04:45 Anion Gap 12.0 (6-13) 04/11/19 04:45 BUN 14 mg/dL (6-20) 04/11/19 04:45 Creatinine 0.9 mg/dL (0.6-1.2) 04/11/19 04:45 Estimated GFR (MDRD) 83 (>89) L 04/11/19 04:45 Glucose 262 mg/dL (70-100) H 04/11/19 04:45 POC Whole Bld Glucose 282 mg/dL (70 - 100) H 04/11/19 07:44 Lactic Acid 1.9 mmol/L (0.5-2.2) 04/10/19 23:50 Calcium 8.9 mg/dL (8.5-10.3) 04/11/19 04:45 Total Bilirubin 1.1 mg/dL (0.2-1.0) H 04/11/19 04:45 AST 27 IU/L (10-42) 04/11/19 04:45 ALT 27 IU/L (10-60) 04/11/19 04:45 Alkaline Phosphatase 67 IU/L (42-121) 04/11/19 04:45 Total Protein 6.4 g/dL (6.7-8.2) L 04/11/19 04:45 Albumin 4.0 g/dL (3.2-5.5) 04/11/19 04:45 Globulin 2.4 g/dL (2.1-4.2) 04/11/19 04:45 Albumin/Globulin Ratio 1.7 (1.0-2.2) 04/11/19 04:45 Triglycerides 61 mg/dL (-149) 04/11/19 04:45 Cholesterol 262 mg/dL (-199) H 04/11/19 04:45 LDL Cholesterol, Calc 182 mg/dL (-129) H 04/11/19 04:45 VLDL Cholesterol 12 mg/dL 04/11/19 04:45 HDL Cholesterol 68 mg/dL (60-) 04/11/19 04:45 LDL/HDL Ratio 2.7 (<3.6) 04/11/19 04:45 Cholesterol/HDL Ratio 3.9 (<5.0) 04/11/19 04:45 Lipase 318 U/L (22-51) H 04/11/19 04:45 Urine Color YELLOW 04/10/19 19:13 Urine Clarity CLEAR (CLEAR) 04/10/19 19:13 Urine pH 5.0 PH (5.0-7.5) 04/10/19 19:13 Ur Specific [place] 1.025 (1.002-1.030) 04/10/19 19:13 Urine Protein NEGATIVE mg/dL (NEGATIVE) 04/10/19 19:13 Urine Glucose (UA) 250 mg/dL (NEGATIVE) H 04/10/19 19:13 Urine Ketones 15 mg/dL (NEGATIVE) H 04/10/19 19:13 Urine Occult Blood NEGATIVE (NEGATIVE) 04/10/19 19:13 Urine Nitrite NEGATIVE (NEGATIVE) 04/10/19 19:13 Urine Bilirubin NEGATIVE (NEGATIVE) 04/10/19 19:13 Urine Urobilinogen 0.2 (NORMAL) E.U./dL (NORMAL) 04/10/19 19:13 Ur Leukocyte Esterase NEGATIVE (NEGATIVE) 04/10/19 19:13 Ur Microscopic Review NOT INDICATED 04/10/19 19:13 Urine Culture Comments NOT INDICATED 04/10/19 19:13 - Procedures Procedures: Procedures EXCISION OF RECTUM, ENDO (03/16/15) EXCISION OF TRANSVERSE COLON, ENDO (03/16/15)
[2019-04-11] MEDS ORDERED: LORazepam 2 MG/ML VIAL IVP PRN (11:00)
[2019-04-11] MEDS ORDERED: MULTIVITAMIN 10 ML, FOLIC ACID INJ 1 MG, THIAMINE INJ 100 MG, MAGNESIUM SULFATE 2 GM in... IV SCH ×5 (12:00)
[2019-04-11 18:42] LABS: INR 1.1 (0.8-1.2); PT - PROTHROMBIN TIME 12.8 secs (9.9-12.6)
[2019-04-11] MEDS: BISACODYL 10 MG SUPP PR PRN (22:11)
[2019-04-11] MEDS: NS W/20 MEQ KCL 1,000 ML IV SCH (22:12)
[2019-04-12] MEDS: FLUTICASONE NASAL SPRAY NAS SCH ×2 (00:01→19:49)
[2019-04-12] MEDS: SODIUM CHLORIDE FLUSH 0.9% 10 ML SYRINGE IVP SCH ×3 (00:57→16:17)
[2019-04-12] MEDS ORDERED: oxyCODONE 5 MG TABLET PO PRN (02:15)
[2019-04-12] MEDS: PIPERACILLIN/TAZOBACTAM 3.375 GM in SODIUM CHLORIDE 0.9% MINIBAG 100 ML IV SCH ×3 (02:31→19:49)
[2019-04-12] MEDS: SIMETHICONE 40 MG/0.6 ML 30 ML BOTTLE PO PRN (02:36)
[2019-04-12] MEDS: HYDROmorphone 1 MG/ML CARPUJECT IVP PRN ×5 (03:50→21:27)
[2019-04-12] MEDS: SODIUM CHLORIDE FLUSH 0.9% 10 ML SYRINGE IVP PRN ×3 (03:56→06:14)
[2019-04-12 04:55] LABS: BASOPHILS # (AUTO) 0.1 10^3/uL (0.0-0.1); BASOPHILS % (AUTO) 0.5 %; EOSINOPHILS # (AUTO) 0.2 10^3/uL (0.0-0.7); HGB - HEMOGLOBIN 14.7 g/dL (14.0-18.0); LYMPHOCYTES # (AUTO) 0.9 10^3/uL (1.5-3.5); LYMPHOCYTES % (AUTO) 4.6 %; MEAN CORPUSCULAR HEMOGLOBIN 30.5 pg (27.0-31.0); MEAN CORPUSCULAR HGB CONC 32.5 g/dL (32.0-36.0); MEAN CORPUSCULAR VOLUME 93.8 fL (80.0-94.0); MEAN PLATELET VOLUME 10.2 fL (7.4-11.4); MONOCYTES # (AUTO) 1.3 10^3/uL (0.0-1.0); MONOCYTES % (AUTO) 6.9 %; NEUTROPHILS % (AUTO) 86.2 %; PLT - PLATELET COUNT 189 10^3/uL (130-450); RED BLOOD COUNT 4.82 10^6/uL (4.70-6.10); RED CELL DISTRIBUTION WIDTH 13.7 % (12.0-15.0); WHITE BLOOD COUNT 18.6 x10^3/uL (4.8-10.8)
[2019-04-12 05:07] LABS: HB2 TOTAL 15.3 g/dL; HEMOGLOBIN A1C 0.75 g/dL; HEMOGLOBIN A1C % 6.6 % (4.6-6.2)
[2019-04-12 05:09] LABS: ALBUMIN 3.3 g/dL (3.2-5.5); ALBUMIN/GLOBULIN RATIO 1.4 (1.0-2.2); BILIRUBIN,TOTAL 2.5 mg/dL (0.2-1.0); CALCIUM 8.2 mg/dL (8.5-10.3); CREATININE 1.1 mg/dL (0.6-1.2); TOTAL PROTEIN 5.7 g/dL (6.7-8.2)
[2019-04-12] MEDS: NS W/20 MEQ KCL 1,000 ML IV SCH ×2 (06:03→16:16)
[2019-04-12] MEDS: INSULIN REGULAR HUMAN 300 UNIT/3 ML VIAL SUBQ SCH ×3 (06:07→19:47)
[2019-04-12] MEDS: PANTOPRAZOLE 40 MG VIAL IVP SCH (06:10)
[2019-04-12] MEDS: SENNA 8.6 MG TABLET PO SCH (08:03)
[2019-04-12] MEDS: METOPROLOL SUCCINATE 50 MG TABLET PO SCH (08:03)
[2019-04-12] MEDS: DOCUSATE SODIUM 250 MG CAPSULE PO SCH (08:03)
[2019-04-12] MEDS: FELODIPINE ER 2.5 MG TABLET PO SCH (08:03)
[2019-04-12] MEDS: polyethylene glycoL 3350 17 GM PACKET PO SCH (08:04)
[2019-04-12] MEDS ORDERED: FLUTICASONE NASAL SPRAY NAS SCH (09:00)
--- NOTE | 2019-04-12 10:49 | PROVIDER PROGRESS NOTE ---
Subjective - Prog Note Date Prog Note Date: 04/12/19 Prog Note Time: 10:47 Current Medications - Current Medications Current Medications: Active Medications Bisacodyl (Dulcolax Supp) 10 mg UT DAILY PRN PRN Reason: Constipation Last Admin: 04/11/19 22:11 Dose: 10 mg Docusate Sodium (Colace 250mg Capsule) 250 - 500 mg PO DAILY [facility] Last Admin: 04/12/19 08:03 Dose: 250 mg Felodipine (Plendil) 5 mg PO DAILY [facility] Last Admin: 04/12/19 08:03 Dose: 5 mg Fluticasone Propionate (Flonase) 1 sprays DANG HS [facility] Last Admin: 04/12/19 00:01 Dose: 1 sprays Hydromorphone HCl (Dilaudid Inj Carp) 2 mg IVP Q2HR PRN PRN Reason: Severe Pain Last Admin: 04/12/19 10:08 Dose: 2 mg Piperacillin Sod/Tazobactam (Sod 3.375 gm/ Sodium Chloride) 100 mls @ 25 mls/hr IV Q8H [facility] Last Infusion: 04/12/19 06:31 Dose: Infused Potassium Chloride/Sodium Chloride (Normal Saline 0.9% W/20 Meq Kcl) 1,000 mls @ 125 mls/hr IV .Q8H [facility] Last Admin: 04/12/19 06:03 Dose: 125 mls/hr Insulin Human Regular (Humulin R) 1 - 5 unit SUBQ Q6HR [facility]; Protocol Last Admin: 04/12/19 06:07 Dose: 1 unit Lorazepam (Ativan Inj (Vial)) 1 mg IVP Q30M PRN; Protocol PRN Reason: CIWA >8 Metoprolol Succinate (Toprol Xl) 50 mg PO DAILY [facility] Last Admin: 04/12/19 08:03 Dose: 50 mg Ondansetron HCl (Zofran Inj) 4 mg IVP Q4H PRN PRN Reason: Nausea / Vomiting Last Admin: 04/11/19 00:56 Dose: 4 mg Oxycodone HCl (Roxicodone) 5 mg PO Q4HR PRN PRN Reason: PAIN Last Admin: 04/12/19 02:43 Dose: 5 mg Pantoprazole Sodium (Protonix) 40 mg IVP QDAC [facility] Last Admin: 04/12/19 06:10 Dose: 40 mg Polyethylene Glycol (Miralax) 17 gm PO DAILY [facility] Last Admin: 04/12/19 08:04 Dose: 17 gm Senna (Senokot) 8.6 - 17.2 mg PO DAILY [facility] Last Admin: 04/12/19 08:03 Dose: 8.6 mg Simethicone () 80 mg PO Q6HR PRN PRN Reason: Gas Last Admin: 04/12/19 02:36 Dose: 80 mg Sodium Chloride (Normal Saline Flush 0.9%) 10 ml IVP PRN PRN PRN Reason: NEEDED PER PROVIDER ORDERS Last Admin: 04/12/19 06:14 Dose: 10 ml Sodium Chloride (Normal Saline Flush 0.9%) 10 ml IVP 0100,0900,1700 [facility] Last Admin: 04/12/19 08:03 Dose: 10 ml Felodipine [Felodipine ER] 10 mg PO BID 03/15/15 Lisinopril 20 mg PO DAILY 03/15/15 Metoprolol Succinate 50 mg PO DAILY 03/15/15 Objective - Vital Signs/Intake & Output Reviewed Vital Signs: Yes Vital Signs: Vital Signs x48h Temp Pulse Resp BP Pulse Ox 04/12/19 07:30 36.4 C L 85 24 159/77 H 92 04/12/19 06:30 92 04/12/19 04:35 36.4 C L 79 25 H 154/66 H 93 Intake & Output: Intake & Output 04/09/19 04/10/19 04/11/19 04/12/19 23:59 23:59 23:59 23:59 Intake Total 798.665 3744.033 1100 Balance 929.678 3504.033 1100 - Objective General Appearance: positive: Alert, Mild distress (he is tachypneic but doesn't feel sob, just reji this abd is so distended he can't take a deep breath), Other (5"9", 111.5 kg white male who looks harper) Eyes Bilateral: positive: PERRL, Other (sclera very muddy) ENT: positive: Dry mucous membranes Neck: positive: No JVD. negative: Stiff neck Respiratory: positive: Chest non-tender, Wheezes. negative: Rales, Rhonchi Cardiovascular: positive: Regular rate & rhythm. negative: Systolic murmur, Gallop/S4 Abdomen: positive: Other (Very distended, tympanitic, with only minimal tenderness in the left upper quadrant. He says pain is controlled but his belly is getting steadily more distended, belching more, less flatus. Hypoactive bowel sounds. No rebound or guarding.) Back: negative: CVA tenderness (R) Skin: positive: Warm, Dry Extremities: positive: Non-tender, Full ROM Neurologic/Psychiatric: positive: Oriented x3, CN's nml (2-12), Motor nml - Lab Results Fish Bones: 04/12/19 04:25 04/12/19 04:25 Other Labs: Lab Results x24hrs 04/12/19 04/12/19 04/12/19 Range/Units 05:57 04:25 04:25 WBC (4.8-10.8) x10^3/uL RBC (4.70-6.10) 10^6/uL Hgb (14.0-18.0) g/dL Hct (42.0-52.0) % MCV (80.0-94.0) fL MCH (27.0-31.0) pg MCHC (32.0-36.0) g/dL RDW (12.0-15.0) % Plt Count (130-450) 10^3/uL MPV (7.4-11.4) fL Neut # (Auto) (1.5-6.6) 10^3/uL Lymph # (Auto) (1.5-3.5) 10^3/uL [place] # (Auto) (0.0-1.0) 10^3/uL Eos # (Auto) (0.0-0.7) 10^3/uL Baso # (Auto) (0.0-0.1) 10^3/uL Absolute Nucleated RBC x10^3/uL Nucleated RBC % /100WBC PT (9.9-12.6) secs INR (0.8-1.2) Sodium 141 (135-145) mmol/L Potassium 4.8 (3.5-5.0) mmol/L Chloride 109 (101-111) mmol/L Carbon Dioxide 26 (21-32) mmol/L Anion Gap 6.0 (6-13) BUN 25 H (6-20) mg/dL Creatinine 1.1 (0.6-1.2) mg/dL Estimated GFR (MDRD) 66 L (>89) Glucose 181 H (70-100) mg/dL POC Whole Bld Glucose 171 H (70 - 100) mg/dL Glycated Hemoglobin 6.6 H (4.6-6.2) % Estim Average Glucose 143 H (70-100) Calcium 8.2 L (8.5-10.3) mg/dL Total Bilirubin 2.5 H (0.2-1.0) mg/dL AST 43 H (10-42) IU/L ALT 30 (10-60) IU/L Alkaline Phosphatase 55 (42-121) IU/L Total Protein 5.7 L (6.7-8.2) g/dL Albumin 3.3 (3.2-5.5) g/dL Globulin 2.4 (2.1-4.2) g/dL Albumin/Globulin Ratio 1.4 (1.0-2.2) Lipase 361 H (22-51) U/L 04/12/19 04/11/19 04/11/19 Range/Units 04:25 23:42 17:34 WBC 18.6 H (4.8-10.8) x10^3/uL RBC 4.82 (4.70-6.10) 10^6/uL Hgb 14.7 (14.0-18.0) g/dL Hct 45.2 (42.0-52.0) % MCV 93.8 (80.0-94.0) fL MCH 30.5 (27.0-31.0) pg MCHC 32.5 (32.0-36.0) g/dL RDW 13.7 (12.0-15.0) % Plt Count 189 (130-450) 10^3/uL MPV 10.2 (7.4-11.4) fL Neut # (Auto) 16.0 H (1.5-6.6) 10^3/uL Lymph # (Auto) 0.9 L (1.5-3.5) 10^3/uL [place] # (Auto) 1.3 H (0.0-1.0) 10^3/uL Eos # (Auto) 0.2 (0.0-0.7) 10^3/uL Baso # (Auto) 0.1 (0.0-0.1) 10^3/uL Absolute Nucleated RBC 0.00 x10^3/uL Nucleated RBC % 0.0 /100WBC PT (9.9-12.6) secs INR (0.8-1.2) Sodium (135-145) mmol/L Potassium (3.5-5.0) mmol/L Chloride (101-111) mmol/L Carbon Dioxide (21-32) mmol/L Anion Gap (6-13) BUN (6-20) mg/dL Creatinine (0.6-1.2) mg/dL Estimated GFR (MDRD) (>89) Glucose (70-100) mg/dL POC Whole Bld Glucose 193 H 192 H (70 - 100) mg/dL Glycated Hemoglobin (4.6-6.2) % Estim Average Glucose (70-100) Calcium (8.5-10.3) mg/dL Total Bilirubin (0.2-1.0) mg/dL AST (10-42) IU/L ALT (10-60) IU/L Alkaline Phosphatase (42-121) IU/L Total Protein (6.7-8.2) g/dL Albumin (3.2-5.5) g/dL Globulin (2.1-4.2) g/dL Albumin/Globulin Ratio (1.0-2.2) Lipase (22-51) U/L 04/11/19 04/10/19 Range/Units 12:02 18:20 WBC (4.8-10.8) x10^3/uL RBC (4.70-6.10) 10^6/uL Hgb (14.0-18.0) g/dL Hct (42.0-52.0) % MCV (80.0-94.0) fL MCH (27.0-31.0) pg MCHC (32.0-36.0) g/dL RDW (12.0-15.0) % Plt Count (130-450) 10^3/uL MPV (7.4-11.4) fL Neut # (Auto) (1.5-6.6) 10^3/uL Lymph # (Auto) (1.5-3.5) 10^3/uL [place] # (Auto) (0.0-1.0) 10^3/uL Eos # (Auto) (0.0-0.7) 10^3/uL Baso # (Auto) (0.0-0.1) 10^3/uL Absolute Nucleated RBC x10^3/uL Nucleated RBC % /100WBC PT 12.8 H (9.9-12.6) secs INR 1.1 (0.8-1.2) Sodium (135-145) mmol/L Potassium (3.5-5.0) mmol/L Chloride (101-111) mmol/L Carbon Dioxide (21-32) mmol/L Anion Gap (6-13) BUN (6-20) mg/dL Creatinine (0.6-1.2) mg/dL Estimated GFR (MDRD) (>89) Glucose (70-100) mg/dL POC Whole Bld Glucose 320 H (70 - 100) mg/dL Glycated Hemoglobin (4.6-6.2) % Estim Average Glucose (70-100) Calcium (8.5-10.3) mg/dL Total Bilirubin (0.2-1.0) mg/dL AST (10-42) IU/L ALT (10-60) IU/L Alkaline Phosphatase (42-121) IU/L Total Protein (6.7-8.2) g/dL Albumin (3.2-5.5) g/dL Globulin (2.1-4.2) g/dL Albumin/Globulin Ratio (1.0-2.2) Lipase (22-51) U/L ABX Reporting Has patient been on IV antibiotics over the past 48 hours?: Yes Assessment/Plan - Problem List (1) Acute pancreatitis Impression: He ate a fatty meal preceding his abd pain. He has never had pancreatitis in the past, he reports. Serum triglyceride level was low at 60. The patient is not a cigarette smoker, but did admit to alcohol use: 2 beers/day now, but was heavier drinker 2-[address] imaging was read as "impending necrosis" of the pancreas. WBC 12.3> 14.0>18.6. He was put on empiric iv antibx using Zosyn. Lipase 902> 318> 361 Delvis's criteria showed him to be greater than 55, glucose greater than 200 on admission. His white cell count was not above 16, his LDH was not done, and AST was not greater than 250. 48 hours later he has not dropped his hematocrit greater than 10%, serum calcium has not dropped below 8, PO2 is still greater than 60 mm, base deficit is normal, and so far no evidence of fluid sequestration. He has had his BUN rise more than 5 mg/dL. Overall score is 3 points which gives you mortality of 11 to 15%. Pain is better but he feels full and uncomfortable , moreso today than before Plan: On increased Dilaudid at a higher dose for pain control. Continue NPO except meds, and iv hydration, prn antiemetics Follow daily Lipase level, CBC and LFTs Repeat CT of abd since WBC higher and abd more distended I may put an NG down after the CT if he continues to be so tympantic (2) Hypertension Assessment/Plan: Continue his po meds (Felodipine and Metoprolol were home meds) and extra iv prn meds (3) Alcohol use Assessment/Plan: The patient reported to hospitalist 04/11 that he drinks only beer, 2 drinks a day, and decreased from heavier drinking 2-3 years ago. LFTs are normal. 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 Assessment/Plan: All his glu checks have been >240. He was told that he was "pre" diabetic. But A1c is 6.6%. 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
[2019-04-12] MEDS ORDERED: IOVERSOL 320 100 ML VIAL IVP ONE (12:31)
[2019-04-12] MEDS: IOVERSOL 320 100 ML VIAL IVP ONE (13:41)
--- NOTE | 2019-04-12 15:03 | CT Report ---
Reason: ABD PAIN WITH LIPASE Procedure Date: 04/12/2019 Accession Number: [id number] / [id number] Procedure: CT - ABDOMEN W/WO CPT Code: Final Report FULL RESULT: EXAM: CT ABDOMEN WITHOUT AND WITH CONTRAST EXAM DATE: 04/12/2019 12:59 PM. HISTORY: ABD PAIN WITH LIPASE. COMPARISON: ABDOMEN/PELVIS W/ 04/10/2019 8:24 PM. TECHNIQUE: Routine helical CT imaging was performed through the abdomen before and after administration of IV contrast: OPTI 320 100ML. Enteric contrast: No. Reconstruction: Coronal and sagittal. In accordance with CT protocol optimization, one or more of the following dose reduction techniques were utilized for this exam: automated exposure control, adjustment of mA and/or KV based on patient size, or use of iterative reconstructive technique. FINDINGS: Lung Bases: Again seen are bibasilar calcified costal pleural plaques with trace bilateral pleural effusions, left great than right. Interval increase since prior. Bibasilar dependent atelectasis. Liver: Normal. No masses. Gallbladder/Bile Ducts: Hypodense luminal contents of gallbladder, internal sludge versus vicarious excretion of contrast. Spleen: Normal. Pancreas: Again seen is peripancreatic fat stranding, predominantly surrounding the head of the pancreas with increased reactive fluid component. Thickening of right anterior renal fascia and increased free fluid. Interval development of a hypodense thrombus in main portal vein as seen on image 86 on series 6), new since prior CT dated 04/10/2019. There is suggestion of hypoenhancement of pancreatic head and uncinate process, concerning for pancreatic necrosis. There is no focal fluid collection. There is no pseudocyst formation. Adrenal Glands: Normal. Kidneys: Normal. No masses or hydronephrosis. Peritoneal Cavity/Bowel: Normal. No free fluid, free air or adenopathy. No masses or acute inflammatory process. The appendix is well visualized and normal. Vasculature: No aneurysms or other significant abnormality. Bones: No significant abnormality. Other: None. IMPRESSION: Increased geoffrey-pancreatic fat stranding surrounding the head of pancreas, with increased reactive fluid component. Suggestion of hypoenhancement of pancreatic head, suggestive of necrosis. New portal venous thrombus since 04 10 19. RADIA
[2019-04-13] MEDS: NS W/20 MEQ KCL 1,000 ML IV SCH (00:07)
[2019-04-13] MEDS: INSULIN REGULAR HUMAN 300 UNIT/3 ML VIAL SUBQ SCH ×4 (00:08→19:16)
[2019-04-13] MEDS: SODIUM CHLORIDE FLUSH 0.9% 10 ML SYRINGE IVP SCH ×3 (00:13→19:28)
[2019-04-13] MEDS: HYDROmorphone 1 MG/ML CARPUJECT IVP PRN ×4 (02:13→14:34)
[2019-04-13] MEDS: SODIUM CHLORIDE FLUSH 0.9% 10 ML SYRINGE IVP PRN ×3 (02:13→05:57)
[2019-04-13] MEDS: PIPERACILLIN/TAZOBACTAM 3.375 GM in SODIUM CHLORIDE 0.9% MINIBAG 100 ML IV SCH ×3 (03:32→19:17)
[2019-04-13] MEDS: hydrALAZINE INJ 20 MG/ML VIAL IVP PRN ×2 (05:01→13:30)
[2019-04-13 05:16] LABS: BASOPHILS % (AUTO) 0.3 %; EOSINOPHILS % (AUTO) 1.1 %; HGB - HEMOGLOBIN 13.9 g/dL (14.0-18.0); MEAN CORPUSCULAR HEMOGLOBIN 29.9 pg (27.0-31.0); MEAN CORPUSCULAR HGB CONC 31.4 g/dL (32.0-36.0); MEAN CORPUSCULAR VOLUME 95.1 fL (80.0-94.0); MEAN PLATELET VOLUME 10.5 fL (7.4-11.4); MONOCYTES % (AUTO) 7.1 %; NEUTROPHILS % (AUTO) 84.2 %; PLT - PLATELET COUNT 173 10^3/uL (130-450); RED BLOOD COUNT 4.65 10^6/uL (4.70-6.10); RED CELL DISTRIBUTION WIDTH 14.5 % (12.0-15.0); WHITE BLOOD COUNT 14.4 x10^3/uL (4.8-10.8)
[2019-04-13 05:22] LABS: ABNORMAL LYMPHS % (MANUAL) 0 %
[2019-04-13 05:28] LABS: ALBUMIN 3.2 g/dL (3.2-5.5); ALBUMIN/GLOBULIN RATIO 1.2 (1.0-2.2); BILIRUBIN,TOTAL 3.4 mg/dL (0.2-1.0); CALCIUM 8.4 mg/dL (8.5-10.3); CREATININE 0.9 mg/dL (0.6-1.2); TOTAL PROTEIN 5.9 g/dL (6.7-8.2)
[2019-04-13 05:39] LABS: BAND NEUTROPHILS % (MANUAL) 3 %; LYMPHOCYTES # (MANUAL) 0.7 10^3/uL (1.5-3.5); LYMPHOCYTES % (MANUAL) 5 %; MONOCYTES # (MANUAL) 0.9 10^3/uL (0.0-1.0); PLATELET ESTIMATE, MANUAL NORMAL (130-450,000) (NORMAL); PLATELET MORPHOLOGY NORMAL APPEARANCE (NORMAL); RBC MORPHOLOGY (MULTIPLE) NORMAL APPEARANCE (NORMAL)
[2019-04-13 05:40] LABS: DIFFERENTIAL COMMENT MANUAL DIFFERENTIAL
[2019-04-13] MEDS: PANTOPRAZOLE 40 MG VIAL IVP SCH (05:54)
[2019-04-13 08:12] LABS: MAGNESIUM 2.8 mg/dL (1.7-2.8); PHOSPHORUS 2.1 mg/dL (2.5-4.6)
--- NOTE | 2019-04-13 08:28 | PROVIDER PROGRESS NOTE ---
Subjective - Prog Note Date Prog Note Date: 04/13/19 Prog Note Time: 08:36 - Subjective Subjective: he's still w distended abd and frequent need to belch. Pain is tolerable at epigasgtrium. no fever. WBC trending down. He had a CIWA score of 0 this am and came up to 6 by this afternoon. Having visual and auditory hallucintations. Current Medications - Current Medications Current Medications: Active Medications Bisacodyl (Dulcolax Supp) 10 mg [place] DAILY PRN PRN Reason: Constipation Last Admin: 04/11/19 22:11 Dose: 10 mg Docusate Sodium (Colace 250mg Capsule) 250 - 500 mg PO DAILY [facility] Last Admin: 04/13/19 08:30 Dose: 250 mg Felodipine (Plendil) 5 mg PO DAILY [facility] Last Admin: 04/13/19 08:30 Dose: 5 mg Fluticasone Propionate (Flonase) 1 sprays DANG HS [facility] Last Admin: 04/12/19 19:49 Dose: 1 sprays Folic Acid () 1 mg PO DAILY [facility] Last Admin: 04/13/19 11:01 Dose: 1 mg Hydralazine HCl (Apresoline Inj) 10 mg IVP Q4H PRN PRN Reason: PER PHYSICIAN ORDER Last Admin: 04/13/19 13:30 Dose: 10 mg Hydromorphone HCl (Dilaudid Inj Carp) 2 mg IVP Q2HR PRN PRN Reason: Severe Pain Last Admin: 04/13/19 14:34 Dose: 2 mg Piperacillin Sod/Tazobactam (Sod 3.375 gm/ Sodium Chloride) 100 mls @ 25 mls/hr IV Q8H [facility] Last Admin: 04/13/19 11:01 Dose: 25 mls/hr Insulin Human Regular (Humulin R) 1 - 5 unit SUBQ Q6HR [facility]; Protocol Last Admin: 04/13/19 13:29 Dose: 2 unit Lorazepam (Ativan Inj (Vial)) 1 mg IVP Q30M PRN; Protocol PRN Reason: CIWA >8 Last Admin: 04/13/19 14:34 Dose: 1 mg Metoprolol Succinate (Toprol Xl) 50 mg PO DAILY [facility] Last Admin: 04/13/19 08:30 Dose: 50 mg Ondansetron HCl (Zofran Inj) 4 mg IVP Q4H PRN PRN Reason: Nausea / Vomiting Last Admin: 04/11/19 00:56 Dose: 4 mg Oxycodone HCl (Roxicodone) 5 mg PO Q4HR PRN PRN Reason: PAIN Last Admin: 04/12/19 02:43 Dose: 5 mg Pantoprazole Sodium (Protonix) 40 mg IVP QDAC [facility] Last Admin: 04/13/19 05:54 Dose: 40 mg Polyethylene Glycol (Miralax) 17 gm PO DAILY [facility] Last Admin: 04/13/19 08:30 Dose: 17 gm Senna (Senokot) 8.6 - 17.2 mg PO DAILY [facility] Last Admin: 04/13/19 08:30 Dose: 8.6 mg Simethicone () 80 mg PO Q6HR PRN PRN Reason: Gas Last Admin: 04/13/19 08:37 Dose: 80 mg Sodium Chloride (Normal Saline Flush 0.9%) 10 ml IVP PRN PRN PRN Reason: NEEDED PER PROVIDER ORDERS Last Admin: 04/13/19 05:57 Dose: 10 ml Sodium Chloride (Normal Saline Flush 0.9%) 10 ml IVP 0100,0900,1700 [facility] Last Admin: 04/13/19 08:30 Dose: 10 ml Thiamine HCl (Vitamin B-1) 100 mg PO DAILY [facility] Last Admin: 04/13/19 11:01 Dose: 100 mg Felodipine [Felodipine ER] 10 mg PO BID 03/15/15 Lisinopril 20 mg PO DAILY 03/15/15 Metoprolol Succinate 50 mg PO DAILY 03/15/15 Objective - Vital Signs/Intake & Output Reviewed Vital Signs: Yes Vital Signs: Vital Signs x48h Temp Pulse Pulse Resp BP BP Pulse Ox 04/13/19 07:48 36.6 C 101 H 30 H 177/74 H 95 04/13/19 06:00 100 169/73 H 04/13/19 05:45 96 161/80 H 04/13/19 05:31 155/64 H 04/13/19 05:30 96 162/72 H 04/13/19 05:20 97 155/64 H 04/13/19 05:15 99 170/74 H 04/13/19 05:10 100 179/86 H 04/13/19 05:01 197/89 H 04/13/19 04:42 91 180/80 H 04/13/19 03:33 36.5 C 87 22 179/89 H 96 04/13/19 01:36 84 189/85 H Intake & Output: Intake & Output 04/10/19 04/11/19 04/12/19 04/13/19 23:59 23:59 23:59 23:59 Intake Total 889.892 0431.033 2241.667 1831.25 Balance 936.819 9572.033 2241.667 1831.25 - Objective General Appearance: positive: No acute distress, Alert Eyes Bilateral: positive: PERRL, EOMI ENT: positive: Pharynx nml Neck: positive: No JVD. negative: Stiff neck Respiratory: positive: Chest non-tender, No respiratory distress, Wheezes. negative: Rales, Rhonchi Cardiovascular: positive: Regular rate & rhythm, Systolic murmur. negative: Gallop/S4, Friction rub Abdomen: positive: Other (Still distended, obese belly. 3 out of 10 pain in the epigastrium with palpation. No rebound or guarding. Belches. Normal bowel sounds.) Skin: positive: Warm, Dry, Diaphoresis Extremities: positive: Non-tender, Full ROM Neurologic/Psychiatric: positive: Oriented x3, CN's nml (2-12), Motor nml, Other (Hallucinations as above, no tremors, no agitation, no tremulousness) - Lab Results Fish Bones: 04/13/19 04:58 04/13/19 04:58 Other Labs: Lab Results x24hrs 04/13/19 04/13/19 04/13/19 Range/Units 07:26 05:53 04:58 WBC (4.8-10.8) x10^3/uL RBC (4.70-6.10) 10^6/uL Hgb (14.0-18.0) g/dL Hct (42.0-52.0) % MCV (80.0-94.0) fL MCH (27.0-31.0) pg MCHC (32.0-36.0) g/dL RDW (12.0-15.0) % Plt Count (130-450) 10^3/uL MPV (7.4-11.4) fL Neut # (Auto) Lymph # (Auto) [place] # (Auto) Eos # (Auto) Baso # (Auto) Absolute Nucleated RBC Total Counted Band Neuts % (Manual) (0 - 10) % Abnorm Lymph % (Manual) % Nucleated RBC % Neutrophils # (Manual) (1.5-6.6) 10^3/uL Lymphocytes # (Manual) (1.5-3.5) 10^3/uL Monocytes # (Manual) (0.0-1.0) 10^3/uL Eosinophils # (Manual) (0-0.7) 10^3/uL Basophils # (Manual) (0-0.1) 10^3/uL Differential Comment WBC Morphology (NORMAL) Platelet Estimate (NORMAL) Platelet Morphology (NORMAL) RBC Morph Micro Appear (NORMAL) Sodium (135-145) mmol/L Potassium (3.5-5.0) mmol/L Chloride (101-111) mmol/L Carbon Dioxide (21-32) mmol/L Anion Gap (6-13) BUN (6-20) mg/dL Creatinine (0.6-1.2) mg/dL Estimated GFR (MDRD) (>89) Glucose (70-100) mg/dL POC Whole Bld Glucose 158 H (70 - 100) mg/dL Lactic Acid 1.4 (0.5-2.2) mmol/L Calcium (8.5-10.3) mg/dL Phosphorus 2.1 L (2.5-4.6) mg/dL Magnesium 2.8 (1.7-2.8) mg/dL Total Bilirubin (0.2-1.0) mg/dL AST (10-42) IU/L ALT (10-60) IU/L Alkaline Phosphatase (42-121) IU/L Total Protein (6.7-8.2) g/dL Albumin (3.2-5.5) g/dL Globulin (2.1-4.2) g/dL Albumin/Globulin Ratio (1.0-2.2) Lipase (22-51) U/L 04/13/19 04/13/19 04/12/19 Range/Units 04:58 04:58 23:59 WBC 14.4 H (4.8-10.8) x10^3/uL RBC 4.65 L (4.70-6.10) 10^6/uL Hgb 13.9 L (14.0-18.0) g/dL Hct 44.2 (42.0-52.0) % MCV 95.1 H (80.0-94.0) fL MCH 29.9 (27.0-31.0) pg MCHC 31.4 L (32.0-36.0) g/dL RDW 14.5 (12.0-15.0) % Plt Count 173 (130-450) 10^3/uL MPV 10.5 (7.4-11.4) fL Neut # (Auto) Not Reportable Lymph # (Auto) Not Reportable [place] # (Auto) Not Reportable Eos # (Auto) Not Reportable Baso # (Auto) Not Reportable Absolute Nucleated RBC Not Reportable Total Counted 100 Band Neuts % (Manual) 3 (0 - 10) % Abnorm Lymph % (Manual) 0 % Nucleated RBC % Not Reportable Neutrophils # (Manual) 12.8 H (1.5-6.6) 10^3/uL Lymphocytes # (Manual) 0.7 L (1.5-3.5) 10^3/uL Monocytes # (Manual) 0.9 (0.0-1.0) 10^3/uL Eosinophils # (Manual) 0.0 (0-0.7) 10^3/uL Basophils # (Manual) 0.0 (0-0.1) 10^3/uL Differential Comment MANUAL DIFFERENTIAL WBC Morphology NORMAL APPEARANCE (NORMAL) Platelet Estimate NORMAL (130-450,000) (NORMAL) Platelet Morphology NORMAL APPEARANCE (NORMAL) RBC Morph Micro Appear NORMAL APPEARANCE (NORMAL) Sodium 142 (135-145) mmol/L Potassium 4.9 (3.5-5.0) mmol/L Chloride 110 (101-111) mmol/L Carbon Dioxide 25 (21-32) mmol/L Anion Gap 7.0 (6-13) BUN 28 H (6-20) mg/dL Creatinine 0.9 (0.6-1.2) mg/dL Estimated GFR (MDRD) 83 L (>89) Glucose 184 H (70-100) mg/dL POC Whole Bld Glucose 157 H (70 - 100) mg/dL Lactic Acid (0.5-2.2) mmol/L Calcium 8.4 L (8.5-10.3) mg/dL Phosphorus (2.5-4.6) mg/dL Magnesium (1.7-2.8) mg/dL Total Bilirubin 3.4 H (0.2-1.0) mg/dL AST 42 (10-42) IU/L ALT 36 (10-60) IU/L Alkaline Phosphatase 63 (42-121) IU/L Total Protein 5.9 L (6.7-8.2) g/dL Albumin 3.2 (3.2-5.5) g/dL Globulin 2.7 (2.1-4.2) g/dL Albumin/Globulin Ratio 1.2 (1.0-2.2) Lipase 124 H (22-51) U/L 04/12/19 04/12/19 04/12/19 Range/Units 21:06 16:39 11:00 WBC (4.8-10.8) x10^3/uL RBC (4.70-6.10) 10^6/uL Hgb (14.0-18.0) g/dL Hct (42.0-52.0) % MCV (80.0-94.0) fL MCH (27.0-31.0) pg MCHC (32.0-36.0) g/dL RDW (12.0-15.0) % Plt Count (130-450) 10^3/uL MPV (7.4-11.4) fL Neut # (Auto) Lymph # (Auto) [place] # (Auto) Eos # (Auto) Baso # (Auto) Absolute Nucleated RBC Total Counted Band Neuts % (Manual) (0 - 10) % Abnorm Lymph % (Manual) % Nucleated RBC % Neutrophils # (Manual) (1.5-6.6) 10^3/uL Lymphocytes # (Manual) (1.5-3.5) 10^3/uL Monocytes # (Manual) (0.0-1.0) 10^3/uL Eosinophils # (Manual) (0-0.7) 10^3/uL Basophils # (Manual) (0-0.1) 10^3/uL Differential Comment WBC Morphology (NORMAL) Platelet Estimate (NORMAL) Platelet Morphology (NORMAL) RBC Morph Micro Appear (NORMAL) Sodium (135-145) mmol/L Potassium (3.5-5.0) mmol/L Chloride (101-111) mmol/L Carbon Dioxide (21-32) mmol/L Anion Gap (6-13) BUN (6-20) mg/dL Creatinine (0.6-1.2) mg/dL Estimated GFR (MDRD) (>89) Glucose (70-100) mg/dL POC Whole Bld Glucose 170 H 193 H 214 H (70 - 100) mg/dL Lactic Acid (0.5-2.2) mmol/L Calcium (8.5-10.3) mg/dL Phosphorus (2.5-4.6) mg/dL Magnesium (1.7-2.8) mg/dL Total Bilirubin (0.2-1.0) mg/dL AST (10-42) IU/L ALT (10-60) IU/L Alkaline Phosphatase (42-121) IU/L Total Protein (6.7-8.2) g/dL Albumin (3.2-5.5) g/dL Globulin (2.1-4.2) g/dL Albumin/Globulin Ratio (1.0-2.2) Lipase (22-51) U/L ABX Reporting Has patient been on IV antibiotics over the past 48 hours?: Yes Assessment/Plan - Problem List (1) Acute pancreatitis Impression: He ate a fatty meal preceding his abd pain. He has never had pancreatitis in the past, he reports. Serum triglyceride level was low at 60. The patient is not a cigarette smoker, but did admit to alcohol use: 2 beers/day now, but was heavier drinker 2-[address] imaging was read as "impending necrosis" of the pancreas. WBC 12.3> 14.0>18.6>14.4 He was put on empiric iv antibx using Zosyn. Lipase 902> 318> 361>124 Delvis's criteria on 04/12 showed him to be greater than 55, glucose greater than 200 on admission. His white cell count was not above 16, his LDH was not done, and AST was not greater than 250. 48 hours later he has not dropped his hematocrit greater than 10%, serum calcium has not dropped below 8, PO2 is still greater than 60 mm, base deficit is normal, and so far no evidence of fluid sequestration. He has had his BUN rise more than 5 mg/dL. Overall score is 3 points which gives you mortality of 11 to 15%. Pain was better but he felt full and uncomfortable yestereday, and today, same. Pain is a little worse at epigastrium. Repeat CT of abdomen showed the same n ecrotic changes of the head of the pancreas and a developing portal vein thrombosis. Plan: On increased Dilaudid at a higher dose for pain control. Start clear liquids and continue iv hydration, prn antiemetics Follow daily Lipase level, CBC and LFTs (2) Portal vein thrombosis Start lovenox (3) Hypertension Assessment/Plan: Continue his po meds (Felodipine and Metoprolol were home meds) and extra iv prn meds (4) Alcohol use was suspected but now with symtoms of alcohol withdrawal and this lead to possibility that alcohol is cause of pancreatitis Assessment/Plan: The patient reported to hospitalist 04/11 that he drinks only beer, 2 drinks a day, and decreased from heavier drinking 2-3 years ago. LFTs are normal. INR 1.1 On banana bag for 1 day which ended 04/12 Started On CIWA protocol 04/11 and prn Ativan, in case of alcohol withdrawal, but no evidence of withdrawal until today with his hallucinations. Add thiamine and folic acid to vitamins (4) Type 2 DM without complication and without fpc use of insulin. Assessment/Plan: All his glu checks have been >240. He was told that he was "pre" diabetic. But A1c is 6.6%. The admitting Applied Anthropologist mentioned holding Metformin for Borderline DM diagosis, not seen on his admit Med[employer] Coverage with ss Insulin and accuchecks have been ordered (5) Pleural plaquing, bilateral He doesn't have a work history that would indicate risk of mesothelioma.
[2019-04-13] MEDS: FELODIPINE ER 2.5 MG TABLET PO SCH (08:30)
[2019-04-13] MEDS: SENNA 8.6 MG TABLET PO SCH (08:30)
[2019-04-13] MEDS: METOPROLOL SUCCINATE 50 MG TABLET PO SCH (08:30)
[2019-04-13] MEDS: DOCUSATE SODIUM 250 MG CAPSULE PO SCH (08:30)
[2019-04-13] MEDS: polyethylene glycoL 3350 17 GM PACKET PO SCH (08:30)
[2019-04-13] MEDS: SIMETHICONE 40 MG/0.6 ML 30 ML BOTTLE PO PRN (08:37)
[2019-04-13] MEDS ORDERED: DOCUSATE SODIUM 100 MG/10 ML UDC PO SCH (09:00)
[2019-04-13] MEDS: THIAMINE 100 MG TABLET PO SCH (11:01)
[2019-04-13] MEDS: FOLIC ACID 1 MG TABLET PO SCH (11:01)
[2019-04-13] MEDS: ENOXAPARIN 100 MG/ML SYRINGE SUBQ SCH (21:34)
[2019-04-13] MEDS ORDERED: ACETAMINOPHEN 325 MG TABLET PO PRN (21:34)
[2019-04-13] MEDS: FLUTICASONE NASAL SPRAY NAS SCH (21:34)
[2019-04-13] MEDS: INSULIN ASPART 300 UNIT/3 ML PEN SUBQ SCH (21:35)
--- NOTE | 2019-04-13 21:46 | XRAY Report ---
Reason: dyspnea, tachypnea Procedure Date: 04/13/2019 Accession Number: [id number] / [id number] Procedure: XR - Chest 1 View X-Ray CPT Code: 99893 Final Report FULL RESULT: EXAM: CHEST RADIOGRAPHY EXAM DATE: 04/13/2019 09:19 PM. CLINICAL HISTORY: Dyspnea, tachypnea. COMPARISON: CHEST 2 VIEW PA/LAT 12/11/2015 4:18 PM. TECHNIQUE: Upright AP view. The projection is lordotic. FINDINGS: Lungs/Pleura: No focal opacities evident. Lung volumes are low. No interstitial abnormality. No pleural effusion. No pneumothorax. Mediastinum: Within exam limitations, the cardiomediastinal contour is normal. Other: Narrowing of the right subacromial space consistent with chronic rotator cuff insufficiency. IMPRESSION: Lungs are low in volume but clear. RADIA
[2019-04-14] MEDS: SODIUM CHLORIDE FLUSH 0.9% 10 ML SYRINGE IVP SCH ×3 (00:50→05:49)
[2019-04-14] MEDS ORDERED: oxyCODONE 5 MG TABLET PO PRN (01:17)
[2019-04-14 01:22] LABS: BASOPHILS % (AUTO) 0.2 %; EOSINOPHILS % (AUTO) 0.1 %; HGB - HEMOGLOBIN 13.7 g/dL (14.0-18.0); LYMPHOCYTES # (AUTO) 0.7 10^3/uL (1.5-3.5); LYMPHOCYTES % (AUTO) 6.5 %; MEAN CORPUSCULAR HEMOGLOBIN 31.1 pg (27.0-31.0); MEAN CORPUSCULAR HGB CONC 32.9 g/dL (32.0-36.0); MEAN CORPUSCULAR VOLUME 94.6 fL (80.0-94.0); MEAN PLATELET VOLUME 10.6 fL (7.4-11.4); MONOCYTES # (AUTO) 0.8 10^3/uL (0.0-1.0); MONOCYTES % (AUTO) 7.3 %; NEUTROPHILS # (AUTO) 9.8 10^3/uL (1.5-6.6); NEUTROPHILS % (AUTO) 84.9 %; PLT - PLATELET COUNT 192 10^3/uL (130-450); RED BLOOD COUNT 4.41 10^6/uL (4.70-6.10); RED CELL DISTRIBUTION WIDTH 14.4 % (12.0-15.0); WHITE BLOOD COUNT 11.5 x10^3/uL (4.8-10.8)
[2019-04-14 01:32] LABS: ALBUMIN/GLOBULIN RATIO 0.9 (1.0-2.2); BILIRUBIN,TOTAL 4.2 mg/dL (0.2-1.0); CALCIUM 8.8 mg/dL (8.5-10.3); CREATININE 0.8 mg/dL (0.6-1.2); TOTAL PROTEIN 6.2 g/dL (6.7-8.2)
[2019-04-14] MEDS: METOCLOPRAMIDE 10 MG/2 ML VIAL IVP SCH ×4 (02:52→21:10)
[2019-04-14] MEDS: PIPERACILLIN/TAZOBACTAM 3.375 GM in SODIUM CHLORIDE 0.9% MINIBAG 100 ML IV SCH ×3 (03:03→18:59)
[2019-04-14 04:57] LABS: BASOPHILS % (AUTO) 0.4 %; EOSINOPHILS % (AUTO) 0.2 %; HGB - HEMOGLOBIN 13.6 g/dL (14.0-18.0); LYMPHOCYTES # (AUTO) 0.6 10^3/uL (1.5-3.5); MEAN CORPUSCULAR HEMOGLOBIN 30.2 pg (27.0-31.0); MEAN CORPUSCULAR HGB CONC 32.5 g/dL (32.0-36.0); MEAN CORPUSCULAR VOLUME 93.1 fL (80.0-94.0); MEAN PLATELET VOLUME 10.7 fL (7.4-11.4); MONOCYTES # (AUTO) 0.8 10^3/uL (0.0-1.0); MONOCYTES % (AUTO) 8.2 %; NEUTROPHILS # (AUTO) 8.6 10^3/uL (1.5-6.6); NEUTROPHILS % (AUTO) 84.4 %; PLT - PLATELET COUNT 198 10^3/uL (130-450); RED CELL DISTRIBUTION WIDTH 14.5 % (12.0-15.0); WHITE BLOOD COUNT 10.2 x10^3/uL (4.8-10.8)
[2019-04-14 05:09] LABS: BILIRUBIN,TOTAL 4.9 mg/dL (0.2-1.0); CALCIUM 8.5 mg/dL (8.5-10.3); CREATININE 0.7 mg/dL (0.6-1.2)
[2019-04-14] MEDS: PANTOPRAZOLE 40 MG VIAL IVP SCH (05:49)
[2019-04-14] MEDS ORDERED: MAGNESIUM CITRATE 296 ML BOTTLE PO PRN (07:32)
[2019-04-14] MEDS ORDERED: MAGNESIUM CITRATE 296 ML BOTTLE PO SCH (08:00)
--- NOTE | 2019-04-14 08:05 | PROVIDER PROGRESS NOTE ---
Subjective - Prog Note Date Prog Note Date: 04/14/19 - Subjective Subjective: although pain was present it was not worse but it was a constant complaint resulting in IV opiates last night and re-eval by financial reporting analyst. Constant belching. At one point RN requested NG tube mentioned in notes by me. Distension of abd caused increased effort in drawing a deep breath so felt sob. at one point RR was 40 at midnight. O2 sat nml on RA. CXR was clear. NO chest pain, cough. Pain meds reduced from IV to po bc of delirium. He is seeing people that aren't there. Current Medications - Current Medications Current Medications: Active Medications Acetaminophen (Tylenol) 650 mg PO Q4HR PRN PRN Reason: Pain or Fever > 38C (100.4F) Last Admin: 04/13/19 22:55 Dose: 650 mg Bisacodyl (Dulcolax Supp) 10 mg WA DAILY PRN PRN Reason: Constipation Last Admin: 04/11/19 22:11 Dose: 10 mg Docusate Sodium (Colace 250mg Capsule) 250 - 500 mg PO DAILY [facility] Last Admin: 04/13/19 08:30 Dose: 250 mg Enoxaparin Sodium (Lovenox) 100 mg SUBQ Q12H [facility] Last Admin: 04/13/19 21:34 Dose: 100 mg Felodipine (Plendil) 5 mg PO DAILY [facility] Last Admin: 04/13/19 08:30 Dose: 5 mg Fluticasone Propionate (Flonase) 1 sprays DANG HS [facility] Last Admin: 04/13/19 21:34 Dose: 1 sprays Folic Acid () 1 mg PO DAILY [facility] Last Admin: 04/13/19 11:01 Dose: 1 mg Hydralazine HCl (Apresoline Inj) 10 mg IVP Q4H PRN PRN Reason: PER PHYSICIAN ORDER Last Admin: 04/13/19 13:30 Dose: 10 mg Piperacillin Sod/Tazobactam (Sod 3.375 gm/ Sodium Chloride) 100 mls @ 25 mls/hr IV Q8H [facility] Last Admin: 04/14/19 03:03 Dose: 25 mls/hr Insulin Aspart (Novolog) 1 - 5 unit SUBQ 0800,1200,1700,2100 THERESA; Protocol Last Admin: 04/13/19 21:35 Dose: 2 unit Lorazepam (Ativan Inj (Vial)) 1 mg IVP Q30M PRN; Protocol PRN Reason: CIWA >8 Last Admin: 04/13/19 14:34 Dose: 1 mg Magnesium Citrate () 296 ml PO ONCE [facility] Stop: 04/14/19 10:00 Metoclopramide HCl (Reglan Inj) 5 mg IVP Q6H [facility] Stop: 04/14/19 20:01 Last Admin: 04/14/19 02:52 Dose: 5 mg Metoprolol Succinate (Toprol Xl) 50 mg PO DAILY [facility] Last Admin: 04/13/19 08:30 Dose: 50 mg Ondansetron HCl (Zofran Inj) 4 mg IVP Q4H PRN PRN Reason: Nausea / Vomiting Last Admin: 04/11/19 00:56 Dose: 4 mg Oxycodone HCl (Roxicodone) 5 mg PO Q4HR PRN PRN Reason: PAIN Last Admin: 04/14/19 01:44 Dose: 5 mg Pantoprazole Sodium (Protonix) 40 mg IVP QDAC [facility] Last Admin: 04/14/19 05:49 Dose: 40 mg Polyethylene Glycol (Miralax) 17 gm PO DAILY [facility] Last Admin: 04/13/19 08:30 Dose: 17 gm Senna (Senokot) 8.6 - 17.2 mg PO DAILY [facility] Last Admin: 04/13/19 08:30 Dose: 8.6 mg Simethicone () 80 mg PO Q6HR PRN PRN Reason: Gas Last Admin: 04/13/19 08:37 Dose: 80 mg Sodium Chloride (Normal Saline Flush 0.9%) 10 ml IVP PRN PRN PRN Reason: NEEDED PER PROVIDER ORDERS Last Admin: 04/13/19 05:57 Dose: 10 ml Sodium Chloride (Normal Saline Flush 0.9%) 10 ml IVP 0100,0900,1700 [facility] Last Admin: 04/14/19 05:49 Dose: 10 ml Thiamine HCl (Vitamin B-1) 100 mg PO DAILY [facility] Last Admin: 04/13/19 11:01 Dose: 100 mg Felodipine [Felodipine ER] 10 mg PO BID 03/15/15 Lisinopril 20 mg PO DAILY 03/15/15 Metoprolol Succinate 50 mg PO DAILY 03/15/15 Objective - Vital Signs/Intake & Output Reviewed Vital Signs: Yes Vital Signs: Vital Signs x48h Temp Pulse Resp BP Pulse Ox 04/14/19 05:20 37.0 C 78 20 158/72 H 95 04/14/19 02:00 26 H 94 04/14/19 00:45 40 H 94 04/14/19 00:05 36.5 C 89 24 150/76 H 93 Intake & Output: Intake & Output 04/11/19 04/12/19 04/13/19 04/14/19 23:59 23:59 23:59 23:59 Intake Total 3971.033 2241.667 3756.25 Balance 3971.033 2241.667 3756.25 - Objective General Appearance: positive: No acute distress, Lethargic (sitting up right in chair, asking if he can go back to bed to take a nap) Eyes Bilateral: positive: PERRL, EOMI ENT: positive: Other (nasal tone of voice) Neck: positive: No JVD Respiratory: positive: Chest non-tender, No respiratory distress, Other (last night he had upper airway stridor w sonorous respiraitons per financial reporting analyst). negative: Wheezes, Rales, Rhonchi Cardiovascular: positive: Regular rate & rhythm, Systolic murmur. negative: Gallop/S4, Friction rub Abdomen: positive: No organomegaly, Nml bowel sounds, Tenderness (3/10 over his epigastrium), Other (still distended and he just received mag citrate. belching continues.). negative: Guarding, Rebound Skin: positive: Warm, Dry. negative: Pallor Extremities: positive: Non-tender, No pedal edema Neurologic/Psychiatric: positive: CN's nml (2-12), Motor nml, Disoriented to time, Slurred/abnml speech (psychomotor slowing , barely can keep his eyes open) - Lab Results Fish Bones: 04/14/19 04:35 04/14/19 04:35 Other Labs: Lab Results x24hrs 04/14/19 04/14/19 04/14/19 Range/Units 04:35 04:35 01:20 WBC 10.2 (4.8-10.8) x10^3/uL RBC 4.50 L (4.70-6.10) 10^6/uL Hgb 13.6 L (14.0-18.0) g/dL Hct 41.9 L (42.0-52.0) % MCV 93.1 (80.0-94.0) fL MCH 30.2 (27.0-31.0) pg MCHC 32.5 (32.0-36.0) g/dL RDW 14.5 (12.0-15.0) % Plt Count 198 (130-450) 10^3/uL MPV 10.7 (7.4-11.4) fL Neut # (Auto) 8.6 H (1.5-6.6) 10^3/uL Lymph # (Auto) 0.6 L (1.5-3.5) 10^3/uL [place] # (Auto) 0.8 (0.0-1.0) 10^3/uL Eos # (Auto) 0.0 (0.0-0.7) 10^3/uL Baso # (Auto) 0.0 (0.0-0.1) 10^3/uL Absolute Nucleated RBC 0.00 x10^3/uL Nucleated RBC % 0.0 /100WBC Sodium 142 (135-145) mmol/L Potassium 4.0 (3.5-5.0) mmol/L Chloride 108 (101-111) mmol/L Carbon Dioxide 22 (21-32) mmol/L Anion Gap 12.0 (6-13) BUN 27 H (6-20) mg/dL Creatinine 0.7 (0.6-1.2) mg/dL Estimated GFR (MDRD) 111 (>89) Glucose 205 H (70-100) mg/dL POC Whole Bld Glucose (70 - 100) mg/dL Lactic Acid 1.4 (0.5-2.2) mmol/L Calcium 8.5 (8.5-10.3) mg/dL Phosphorus (2.5-4.6) mg/dL Magnesium (1.7-2.8) mg/dL Total Bilirubin 4.9 H (0.2-1.0) mg/dL AST 42 (10-42) IU/L ALT 45 (10-60) IU/L Alkaline Phosphatase 75 (42-121) IU/L Total Protein 6.0 L (6.7-8.2) g/dL Albumin 3.0 L (3.2-5.5) g/dL Globulin 3.0 (2.1-4.2) g/dL Albumin/Globulin Ratio 1.0 (1.0-2.2) CA 19-9 Antigen (<34) U/mL 04/14/19 04/14/19 04/14/19 Range/Units 01:15 01:15 00:04 WBC 11.5 H (4.8-10.8) x10^3/uL RBC 4.41 L (4.70-6.10) 10^6/uL Hgb 13.7 L (14.0-18.0) g/dL Hct 41.7 L (42.0-52.0) % MCV 94.6 H (80.0-94.0) fL MCH 31.1 H (27.0-31.0) pg MCHC 32.9 (32.0-36.0) g/dL RDW 14.4 (12.0-15.0) % Plt Count 192 (130-450) 10^3/uL MPV 10.6 (7.4-11.4) fL Neut # (Auto) 9.8 H (1.5-6.6) 10^3/uL Lymph # (Auto) 0.7 L (1.5-3.5) 10^3/uL [place] # (Auto) 0.8 (0.0-1.0) 10^3/uL Eos # (Auto) 0.0 (0.0-0.7) 10^3/uL Baso # (Auto) 0.0 (0.0-0.1) 10^3/uL Absolute Nucleated RBC 0.00 x10^3/uL Nucleated RBC % 0.0 /100WBC Sodium 138 (135-145) mmol/L Potassium 3.9 (3.5-5.0) mmol/L Chloride 109 (101-111) mmol/L Carbon Dioxide 23 (21-32) mmol/L Anion Gap 6.0 (6-13) BUN 28 H (6-20) mg/dL Creatinine 0.8 (0.6-1.2) mg/dL Estimated GFR (MDRD) 95 (>89) Glucose 197 H (70-100) mg/dL POC Whole Bld Glucose 177 H (70 - 100) mg/dL Lactic Acid (0.5-2.2) mmol/L Calcium 8.8 (8.5-10.3) mg/dL Phosphorus (2.5-4.6) mg/dL Magnesium (1.7-2.8) mg/dL Total Bilirubin 4.2 H (0.2-1.0) mg/dL AST 39 (10-42) IU/L ALT 42 (10-60) IU/L Alkaline Phosphatase 72 (42-121) IU/L Total Protein 6.2 L (6.7-8.2) g/dL Albumin 3.0 L (3.2-5.5) g/dL Globulin 3.2 (2.1-4.2) g/dL Albumin/Globulin Ratio 0.9 L (1.0-2.2) CA 19-9 Antigen (<34) U/mL 04/13/19 04/13/19 04/13/19 Range/Units 20:48 16:38 11:45 WBC (4.8-10.8) x10^3/uL RBC (4.70-6.10) 10^6/uL Hgb (14.0-18.0) g/dL Hct (42.0-52.0) % MCV (80.0-94.0) fL MCH (27.0-31.0) pg MCHC (32.0-36.0) g/dL RDW (12.0-15.0) % Plt Count (130-450) 10^3/uL MPV (7.4-11.4) fL Neut # (Auto) (1.5-6.6) 10^3/uL Lymph # (Auto) (1.5-3.5) 10^3/uL [place] # (Auto) (0.0-1.0) 10^3/uL Eos # (Auto) (0.0-0.7) 10^3/uL Baso # (Auto) (0.0-0.1) 10^3/uL Absolute Nucleated RBC x10^3/uL Nucleated RBC % /100WBC Sodium (135-145) mmol/L Potassium (3.5-5.0) mmol/L Chloride (101-111) mmol/L Carbon Dioxide (21-32) mmol/L Anion Gap (6-13) BUN (6-20) mg/dL Creatinine (0.6-1.2) mg/dL Estimated GFR (MDRD) (>89) Glucose (70-100) mg/dL POC Whole Bld Glucose 195 H 180 H 187 H (70 - 100) mg/dL Lactic Acid (0.5-2.2) mmol/L Calcium (8.5-10.3) mg/dL Phosphorus (2.5-4.6) mg/dL Magnesium (1.7-2.8) mg/dL Total Bilirubin (0.2-1.0) mg/dL AST (10-42) IU/L ALT (10-60) IU/L Alkaline Phosphatase (42-121) IU/L Total Protein (6.7-8.2) g/dL Albumin (3.2-5.5) g/dL Globulin (2.1-4.2) g/dL Albumin/Globulin Ratio (1.0-2.2) CA 19-9 Antigen (<34) U/mL 04/13/19 04/13/19 Range/Units 07:35 04:58 WBC (4.8-10.8) x10^3/uL RBC (4.70-6.10) 10^6/uL Hgb (14.0-18.0) g/dL Hct (42.0-52.0) % MCV (80.0-94.0) fL MCH (27.0-31.0) pg MCHC (32.0-36.0) g/dL RDW (12.0-15.0) % Plt Count (130-450) 10^3/uL MPV (7.4-11.4) fL Neut # (Auto) (1.5-6.6) 10^3/uL Lymph # (Auto) (1.5-3.5) 10^3/uL [place] # (Auto) (0.0-1.0) 10^3/uL Eos # (Auto) (0.0-0.7) 10^3/uL Baso # (Auto) (0.0-0.1) 10^3/uL Absolute Nucleated RBC x10^3/uL Nucleated RBC % /100WBC Sodium (135-145) mmol/L Potassium (3.5-5.0) mmol/L Chloride (101-111) mmol/L Carbon Dioxide (21-32) mmol/L Anion Gap (6-13) BUN (6-20) mg/dL Creatinine (0.6-1.2) mg/dL Estimated GFR (MDRD) (>89) Glucose (70-100) mg/dL POC Whole Bld Glucose (70 - 100) mg/dL Lactic Acid (0.5-2.2) mmol/L Calcium (8.5-10.3) mg/dL Phosphorus 2.1 L (2.5-4.6) mg/dL Magnesium 2.8 (1.7-2.8) mg/dL Total Bilirubin (0.2-1.0) mg/dL AST (10-42) IU/L ALT (10-60) IU/L Alkaline Phosphatase (42-121) IU/L Total Protein (6.7-8.2) g/dL Albumin (3.2-5.5) g/dL Globulin (2.1-4.2) g/dL Albumin/Globulin Ratio (1.0-2.2) CA 19-9 Antigen 157 H (<34) U/mL ABX Reporting Has patient been on IV antibiotics over the past 48 hours?: Yes Assessment/Plan - Problem List (1) Acute pancreatitis Impression: He ate a fatty meal preceding his abd pain. He has never had pancreatitis in the past, he reports. Serum triglyceride level was low at 60. The patient is not a cigarette smoker, but did admit to alcohol use: 2 beers/day now, but was heavier drinker 2-[address] imaging was read as "impending necrosis" of the pancreas. WBC 12.3> 14.0>18.6>14.4>11.5>10.2 He was put on empiric iv antibx using Zosyn. Lipase 902> 318> 361>124 on 04/13 Ottosen's criteria on 04/12 showed him to be greater than 55, glucose greater than 200 on admission. His white cell count was not above 16, his LDH was not done, and AST was not greater than 250. 48 hours later he has not dropped his hematocrit greater than 10%, serum calcium has not dropped below 8, PO2 is still greater than 60 mm, base deficit is normal, and so far no evidence of fluid sequestration. He has had his BUN rise more than 5 mg/dL. Overall score is 3 points which gives you mortality of 11 to 15%. Pain was better but he felt full and uncomfortable 04/12 to today. Pain was a little worse at epigastrium 04/13 but better today. Repeat CT of abdomen showed the same necrotic changes of the head of the pancreas and a developing portal vein thrombosis. Plan: dialudid changed to po yesterday bc of delirium Started on clear liquids and tolerated. Will advance diet to low fat, soft and continue iv hydration, prn antiemetics (2) Portal vein thrombosis Started lovenox 100 mg SQ bid (3) Hypertension Assessment/Plan: Continue his po meds (Felodipine and Metoprolol were home meds) and extra iv prn meds (4) Alcohol use was suspected but now with symtoms of alcohol withdrawal and this lead to possibility that alcohol is cause of pancreatitis Assessment/Plan: The patient reported to hospitalist 04/11 that he drinks only beer, 2 drinks a day, and decreased from heavier drinking 2-3 years ago. LFTs are normal. INR 1.1 On banana bag for 1 day which ended 04/12 Started On CIWA protocol 04/11 and prn Ativan, in case of alcohol withdrawal, but no evidence of withdrawal until yesterday with his hallucinations, HTN. Added thiamine and folic acid to vitamins Have stopped ativan bc of delirium (4) Type 2 DM without complication and without terminal gauger use of insulin. Assessment/Plan: All his glu checks have been >240. He was told that he was "pre" diabetic. But A1c is 6.6%. The admitting [employer] mentioned holding Metformin for Borderline DM diagosis, not seen on his admit MedList Coverage with Insulin and accuchecks have been ordered April 13: 157, 187, 180, 195 April 11: 177, 202 (5) Pleural plaquing, bilateral He doesn't have a work history that would indicate risk of mesothelioma.
[2019-04-14] MEDS ORDERED: ENOXAPARIN 100 MG/ML SYRINGE SUBQ SCH (09:00)
[2019-04-14] MEDS: INSULIN ASPART 300 UNIT/3 ML PEN SUBQ SCH ×3 (09:36→17:52)
[2019-04-14] MEDS: ENOXAPARIN 100 MG/ML SYRINGE SUBQ SCH ×2 (09:37→21:10)
[2019-04-14] MEDS: FELODIPINE ER 2.5 MG TABLET PO SCH (10:03)
[2019-04-14] MEDS: DOCUSATE SODIUM 250 MG CAPSULE PO SCH (10:03)
[2019-04-14] MEDS: FOLIC ACID 1 MG TABLET PO SCH (10:03)
[2019-04-14] MEDS: SENNA 8.6 MG TABLET PO SCH (10:04)
[2019-04-14] MEDS: METOPROLOL SUCCINATE 50 MG TABLET PO SCH (10:04)
[2019-04-14] MEDS: THIAMINE 100 MG TABLET PO SCH (10:04)
[2019-04-14] MEDS: polyethylene glycoL 3350 17 GM PACKET PO SCH (10:04)
[2019-04-14] MEDS: LACTOBACILLUS RHAMNOSUS GG CAPSULE PO SCH (16:37)
[2019-04-14] MEDS ORDERED: ALBUTEROL NEB 2.5 MG/3 ML INH PRN (18:57)
[2019-04-14] MEDS: FLUTICASONE NASAL SPRAY NAS SCH (18:58)
[2019-04-14] MEDS: SODIUM CHLORIDE FLUSH 0.9% 10 ML SYRINGE IVP PRN ×2 (19:00→21:11)
[2019-04-14] MEDS ORDERED: IOVERSOL 320 100 ML VIAL IVP ONE (19:22)
[2019-04-14] MEDS: IOVERSOL 320 100 ML VIAL IVP ONE (20:30)
[2019-04-14] MEDS ORDERED: INSULIN ASPART 300 UNIT/3 ML PEN SUBQ SCH (21:00)
[2019-04-14] MEDS: methylPREDNISolone SUCCINATE 40 MG/ML VIAL IVP SCH (21:11)
--- NOTE | 2019-04-14 21:21 | CT Report ---
Reason: sudden sob, pancreatitis Procedure Date: 04/14/2019 Accession Number: [id number] / [id number] Procedure: CT - ANGIO CHEST W/WO CPT Code: Final Report FULL RESULT: EXAM: CT ANGIOGRAM CHEST EXAM DATE: 04/14/2019 08:39 PM. CLINICAL HISTORY: Sudden shortness of breath. History of pancreatitis. Concern for PE. COMPARISON: ABDOMEN W/WO 04/12/2019 12:48 PM. TECHNIQUE: Routine helical imaging was performed through the chest in the pulmonary arterial phase. IV Contrast: 80 cc of Optiray 320. Reconstructions: Coronal 3-D MIP reconstructions.Sagittal and coronal. In accordance with CT protocol optimization, one or more of the following dose reduction techniques were utilized for this exam: automated exposure control, adjustment of mA and/or KV based on patient size, or use of iterative reconstructive technique. FINDINGS: Pulmonary Arteries: Diagnostic quality: Adequate through the segmental arteries. No evidence for acute or chronic pulmonary emboli. RV/LV is within normal limits. There is no interventricular septal bowing. There is no reflux of contrast material in the IVC. Lungs/Pleura: Mild dependent atelectasis. Pleural calcification, posterior left hemithorax. No consolidation, nodules, or edema. No effusions or pneumothorax. Mediastinum: Mild aortic and coronary artery calcification. No cardiac enlargement or adenopathy. Thoracic Aorta: Unremarkable. Upper Abdomen: Mild ascites. Fat stranding surrounding the head of the pancreas. Other: None. IMPRESSION: 1. 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 2. No aortic aneurysm or dissection. 3. Mild dependent atelectasis bilaterally. 4. Pleural calcification, posterior left hemithorax. 5. Pancreatitis, with peripancreatic fat stranding and mild ascites. RADIA
[2019-04-14] MEDS: BISACODYL 10 MG SUPP PR PRN (22:44)
[2019-04-15] MEDS: INSULIN REGULAR HUMAN 300 UNIT/3 ML VIAL SUBQ SCH ×3 (01:08→11:23)
[2019-04-15] MEDS: PIPERACILLIN/TAZOBACTAM 3.375 GM in SODIUM CHLORIDE 0.9% MINIBAG 100 ML IV SCH ×2 (03:44→11:47)
[2019-04-15] MEDS: SODIUM CHLORIDE FLUSH 0.9% 10 ML SYRINGE IVP SCH ×3 (03:44→06:15)
[2019-04-15 05:25] LABS: BASOPHILS # (AUTO) 0.1 10^3/uL (0.0-0.1); BASOPHILS % (AUTO) 0.9 %; EOSINOPHILS % (AUTO) 0.6 %; HGB - HEMOGLOBIN 12.8 g/dL (14.0-18.0); LYMPHOCYTES # (AUTO) 0.3 10^3/uL (1.5-3.5); LYMPHOCYTES % (AUTO) 4.9 %; MEAN CORPUSCULAR HEMOGLOBIN 30.7 pg (27.0-31.0); MEAN CORPUSCULAR HGB CONC 32.1 g/dL (32.0-36.0); MEAN CORPUSCULAR VOLUME 95.7 fL (80.0-94.0); MEAN PLATELET VOLUME 10.9 fL (7.4-11.4); MONOCYTES # (AUTO) 0.5 10^3/uL (0.0-1.0); MONOCYTES % (AUTO) 7.3 %; NEUTROPHILS # (AUTO) 5.5 10^3/uL (1.5-6.6); NEUTROPHILS % (AUTO) 85.5 %; PLT - PLATELET COUNT 226 10^3/uL (130-450); RED BLOOD COUNT 4.17 10^6/uL (4.70-6.10); RED CELL DISTRIBUTION WIDTH 14.6 % (12.0-15.0); WHITE BLOOD COUNT 6.5 x10^3/uL (4.8-10.8)
[2019-04-15] MEDS: PANTOPRAZOLE 40 MG VIAL IVP SCH (06:12)
[2019-04-15] MEDS: methylPREDNISolone SUCCINATE 40 MG/ML VIAL IVP SCH (06:14)
[2019-04-15] MEDS ORDERED: IOVERSOL 320 100 ML VIAL IVP ONE (06:56)
[2019-04-15 07:41] VITALS: BP 152/68
[2019-04-15] MEDS: SENNA 8.6 MG TABLET PO SCH (09:36)
[2019-04-15] MEDS: FELODIPINE ER 2.5 MG TABLET PO SCH (09:36)
[2019-04-15] MEDS: THIAMINE 100 MG TABLET PO SCH (09:36)
[2019-04-15] MEDS: FOLIC ACID 1 MG TABLET PO SCH (09:36)
[2019-04-15] MEDS: ENOXAPARIN 100 MG/ML SYRINGE SUBQ SCH (09:37)
[2019-04-15] MEDS: polyethylene glycoL 3350 17 GM PACKET PO SCH (09:37)
[2019-04-15] MEDS: DOCUSATE SODIUM 250 MG CAPSULE PO SCH (09:37)
[2019-04-15] MEDS: LACTOBACILLUS RHAMNOSUS GG CAPSULE PO SCH (09:37)
[2019-04-15] MEDS: METOPROLOL SUCCINATE 50 MG TABLET PO SCH (09:37)
--- NOTE | 2019-04-15 11:20 | Discharge Plan ---
Discharge Plan Problem Reviewed?: Yes Disposition: Home, Self Care Condition: Stable Prescriptions: Albuterol Sulfate [Proventil Hfa Inhaler] 1 - 2 puffs INH Q4H PRN #1 inhaler PRN Reason: Shortness Of Air/Wheezing Moxifloxacin [Avelox] 400 mg PO DAILY #4 tablet Warfarin Sodium [Coumadin] 2 mg PO DAILY #15 tablet Diet: Diabetic (with low, low fat. small meals.) Activity Restrictions: Activity as Tolerated Shower Restrictions: No Driving Restrictions: No Assistance Devices: Walker Instruction Topics: Pancreatitis, Pancreatitis Acute Dc Health Concerns: You presented to our emergency room with pain in the middle of your upper stomach, nausea, vomiting. They had started at noon that day when you were watching TV and you had just eaten some cheese and bologna sandwich. You do drink alcohol, maybe 2 beers a day. Once you are in the emergency room we found you to have pancreatitis. Pancreatitis is either from alcohol abuse or gallbladder sludge/stones. While here you did develop some delirium. This was seen as high blood pressure, high pulse rate, and hallucinations of people that were not there, and objects such as animals that were not there. The delirium could have been strictly from being an older patient who was sick in the hospital receiving medications. Or could have been from mild alcohol withdrawal. Plan of Treatment: 1. The pancreatitis is treated with just observation. Unfortunately there is not much we can do for pancreatitis other than support the patient through the pain, nausea, and give you hydration. It can be very serious disease since the pancreas is digesting itself. 2. Because the pancreatitis was very severe at the head of your pancreas with necrosis or "eating away" of the head of the pancreas, you were started on antibiotics. 3. The delirium was treated with thiamine, folic acid, and a small dose of Ativan which is a tranquilizer. 4. While here, you developed wheezing and shortness of breath. 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 We think you have wheezing from that. You also have pleural plaquing from your history of being a change coordinator and being in the [employer]. The wheezing was treated with steroids and a nebulizer. 5. While here you were diagnosed as having diabetes. In the past you were told were "pre-" diabetic. But your A1c is 6.6%. Anything above 6% is considered diabetic and you should be on a diabetic diet. See your primary care provider to see if you need to start medications. Care Goals: 1. Finish the antibiotics for the pancreatitis in the form of Avelox. 1 pill a day for 3 days. 2. You will be sent home with a prescription for the inhaler to help your wheezing 3. Ask your primary care provider to refer you for evaluation of the pleural plaquing to make sure you do not have asbestosis or mesothelioma 4. Make sure you do a very low-fat diet, easy to digest food, and avoid large fried food meals. I am afraid to say that you probably also should not drink any alcohol at all. No beer, wine, whiskey, etc. 5. I know you are tired, short of breath, but try and get up and walk in your house every 2 hours while awake.I have offered you physical therapy orders, but you say you do not need them right now. Assessment: Patient states he understands and will follow through. No Smoking: If you smoke, Please STOP! Call for help. Follow-up with: Viola Grider ARNP [Primary Care Provider] -
--- NOTE | 2019-04-15 12:10 | DISCHARGE SUMMARY ---
Discharge Summary Admit Date: 04/10/19 Discharge Date: 04/15/19 Discharging Provider: Nury Osborne MD Primary Care Provider: Viola Grider Code Status: Attempt Resuscitation Condition at Discharge: Stable Discharge Disposition: 01 Home, Self Care - DIAGNOSES Discharge Diagnoses with Status of Each Condition: 1. Pancreatitis with necrosis 2. Portal vein thrombosis 3. Hypertension 4. Alcohol withdrawal with delirium 5. Type 2 diabetes mellitus, without complication, on long-term use of insulin 6. Bilateral pleural plaquing 7. Wheezing - HPI History of Present Illness: Patient is a 74 y/o male who presented to the ED with epigastric pain, nausea and vomiting. His symptoms started around noon today while he was watching TV. He had just eaten some cheese and bologna prior to onset of his symptoms. In the morning he had taking his grandson to a breakfast event they had at his school. He had pancakes and sausage. He denied any recent trauma or travel. He drinks occasionally but not significantly. He denied chest pain, dyspnea, fever or chills. He had 2 episodes of diarrhea. In the ED work up included a CT of the abdomen/ pelvis which showed acute interstitial pancreatitis with possibility of impending necrosis. Lipase level was 902. At the time of my exam his pain was 6/10. As a result of his presentation, he is being admitted for further treatment. History - Past Medical History Cardiovascular: reports: Hypertension Respiratory: reports: None Endocrine/Autoimmune: reports: None, Other (prediabetic) GI: reports: None : reports: None, Other (Hx of prostate cancer s/p prostatectomy) HEENT: reports: None Psych: reports: None Musculoskeletal: reports: None Derm: reports: None - CONSULTS | PROCEDURES Procedures: 1. Abdomen pelvis CT on April 10 showing no gallstones, no biliary dilation. Small hypoattenuating inferior splenic lesion reflecting small benign angiomatous lesion. Peripancreatic fluid and fat stranding consistent with acute pancreatitis. No ductal dilatation. Kidney cyst. Wall thickening and hyperemia of the duodenum likely reflect suggestive inflammation. Second CT of the abdomen done April 12 shows the same bibasilar costal pleural plaques, slight increase of atelectasis, internal sludge versus vicarious excretion of contrast in gallbladder, peripancreatic fat stranding predominantly surrounding the head of the pancreas with increased reactive fluid component. Thickening of the right anterior renal fascia and increased free fluid. Interval development of hypodense thrombus in the main portal vein. Suggestion of hypoenhancement of the pancreatic head and uncinate process concerning for pancreatic necrosis. No free fluid, free air. 2. Lung volumes are low on a chest x-ray but clear 3. Chest/thorax CT angiogram without pulmonary emboli, no aortic dissection, minimal atelectasis bilaterally, pleural calcification, and pancreatitis. 4. Blood cultures negative after 2 days - HOSPITAL COURSE Hospital Course: The patient was treated with support for his pain, nausea, and abdominal distention for his pancreatitis. His lab work was watched and lipase started at 902 and came down to 124. Diet was started is clear liquids and advance to low- fat. Pain was epigastric at a 3 out of a 10 and gradually improved. He had moderate abdominal distention resulting in lots of belching. He also had constipation that was contributing to his abdominal distention and he received quite a bit of medication to force a bowel movement. He did have a bowel movement. At no time did he have an acute abdomen. And white cell count peaked at 18.6 and was 6.5 by the time of discharge. Delvis's criteria was 3 points at 48 hours indicating an up to an 11 to 15% mortality. I did explain to the patient that we think that it may have been his 2 beers a day they did this. We did not identify stones or common bile duct pathology. He was very slow to move with regards to distention and he was very anxious about this. He felt that things were taking too long to improve, and that nothing was being done, and on the day before discharge asked for transfer to either [facility] or [facility]. Unfortunately neither hospital would accept him. They both had beds available but they felt that this patient did not require a lateral or higher level of care. I explained that to the patient and his daughter. At discharge he is tolerating a diet, ambulating in room with a walker, but I explained to him that his pancreas is still inflamed. That he needs to finish 3 more days of antibiotics. If he has any fever, recurrence of abdominal pain, inability to eat, he has to return to the hospital. I explained that the autodigestion of his pancreas was good to take a long time to get over and that he could get complications of this. I would recommend that a repeat CT be done in the next month to show either resolution of his pancreatitis or possible evolution to a pseudocyt that may need surgical treatment. Complications of the pancreatitis included portal vein thrombosis. He was started on Lovenox for this. He will be continued on Coumadin, low-dose, and should see his primary care provider to get his INR reviewed and Coumadin adjusted. Once the immediate inflammation has resolved, literature suggests anticoagulation can stop. He did develop shortness of breath and wheezing. Some of it was from his abdominal distention compressing upwards into his diaphragm and not allowing him to have full respiratory excursion. CT was done of the chest to make sure he was not having pulmonary emboli and that was negative. He is discharged on an albuterol inhaler (he is not sure but he may have one at home and I have prescribed one). He is an ex-cigarette smoker but stopped many years ago. Incidental finding was that of pleural plaquing on his CT of the chest and chest x-ray. 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 He does not think he was exposed to asbestosis. But he should get follow-up for the pleural plaquing. On admission his glucose was greater than 240. He was told in the past that he was "pre-" diabetic. We explained to him that he is really a diabetic now. And should be on a diabetic diet. Recheck his A1c in the next few weeks. Consider starting medication for diabetes. These was discussed with his primary care provider Lis Grider. - ALLERGIES Allergies/Adverse Reactions: Allergies Allergy/AdvReac Type Severity Reaction Status Date / Time No Known Drug Allergies Allergy Verified 04/10/19 18:26 - MEDICATIONS Home Medications: Ambulatory Orders Medication Instructions Recorded Confirmed Felodipine [Felodipine ER] 10 mg PO BID 03/15/15 04/11/19 Lisinopril 20 mg PO DAILY 03/15/15 04/11/19 Metoprolol Succinate 50 mg PO DAILY 03/15/15 04/11/19 Albuterol Sulfate [Proventil Hfa 1 - 2 puffs INH Q4H PRN #1 inhaler 04/15/19 Inhaler] Folic Acid 1 mg PO DAILY tablet 04/15/19 Moxifloxacin [Avelox] 400 mg PO DAILY #4 tablet 04/15/19 Thiamine [Vitamin B-1] 100 mg PO DAILY tablet 04/15/19 Warfarin Sodium [Coumadin] 2 mg PO DAILY #15 tablet 04/15/19 - PHYSICAL EXAM AT DISCHARGE General Appearance: positive: Alert, Mild distress (Increased respiratory effort just with getting up to walk to the bathroom.), Other (5 foot 9 inches, 111.5 kg) Eyes Bilateral: positive: PERRL, EOMI ENT: positive: Pharynx nml, Other (Evidence of some postnasal drip and a nasal tone of voice) Neck: positive: No JVD, Lymphadenopathy (R) (Shotty), Lymphadenopathy (L) (Shotty) Respiratory: positive: Chest non-tender, Other (Barrel chested). negative: Wheezes (Right now but during this admission he has wheezed while sleeping, and yesterday during the day. Currently no wheezes), Rales, Rhonchi Cardiovascular: positive: Regular rate & rhythm. negative: JVD present, Gallop/S4, Friction rub Abdomen: positive: Nml bowel sounds, Other (Distended, still belching, but not tender. No rebound or guarding.) Extremities: positive: Full ROM Neurologic/Psychiatric: positive: Oriented x3, CN's nml (2-12), Motor nml - LABS Result Diagrams: 04/15/19 04:40 04/14/19 04:35 - TIME SPENT Time Spent in Discharge (Minutes): 40
[2019-04-15 13:33] LABS: INR 1.2 (0.8-1.2); PT - PROTHROMBIN TIME 13.6 secs (9.9-12.6)
== END 2019-04-15 13:12 | disposition home or self-care (01) | DRG 438 ==
LOC: ED 18:23 → MS2 21:31
PROVIDERS: ADMIT Internal Medicine; ATTEND Specialist
DX: K85.30 Drug induced acute pancreatitis without necrosis or infection (principal); T46.4X5A Adverse effect of angiotensin-converting-enzyme inhibitors, initial encounter; K85.21 Alcohol induced acute pancreatitis with uninfected necrosis; I81 Portal vein thrombosis; I47.2 Ventricular tachycardia; F10.231 Alcohol dependence with withdrawal delirium; I10 Essential (primary) hypertension; E11.9 Type 2 diabetes mellitus without complications; J92.9 Pleural plaque without asbestos; R06.2 Wheezing; K59.00 Constipation, unspecified; Z85.46 Personal history of malignant neoplasm of prostate; Z90.79 Acquired absence of other genital organ(s); Z87.891 Personal history of nicotine dependence; Z57.39 Occupational exposure to other air contaminants; Z79.899 Other long term (current) drug therapy
CPT/HCPCS: 36415; 71045; 71275; 74170; 74177; 80053; 80061; 81003; 83036; 83605; 83690; 83735; 84100; 84484; 85025; 85610; 86301; 87040; 94640; 96374; 99285; A9270; J1170; J1650; J1815; J2060; J2765; J3411; Q0162; Q9967; 81001; 83721; 87086

== ENCOUNTER 2019-04-23 08:20 | Emergency (ER) | payer MEDICARE, BC ==
[2019-04-23 09:12] LABS: BASOPHILS % (AUTO) 0.3 %; EOSINOPHILS % (AUTO) 0.1 %; HGB - HEMOGLOBIN 12.8 g/dL (14.0-18.0); LYMPHOCYTES # (AUTO) 0.7 10^3/uL (1.5-3.5); LYMPHOCYTES % (AUTO) 5.7 %; MEAN CORPUSCULAR HEMOGLOBIN 31.1 pg (27.0-31.0); MEAN CORPUSCULAR VOLUME 91.3 fL (80.0-94.0); MEAN PLATELET VOLUME 11.4 fL (7.4-11.4); NEUTROPHILS # (AUTO) 10.2 10^3/uL (1.5-6.6); NEUTROPHILS % (AUTO) 84.6 %; PLT - PLATELET COUNT 362 10^3/uL (130-450); RED BLOOD COUNT 4.12 10^6/uL (4.70-6.10); RED CELL DISTRIBUTION WIDTH 14.8 % (12.0-15.0)
[2019-04-23 09:28] LABS: ALBUMIN 2.7 g/dL (3.2-5.5); ALBUMIN/GLOBULIN RATIO 0.8 (1.0-2.2); BILIRUBIN,TOTAL 4.4 mg/dL (0.2-1.0); CALCIUM 8.1 mg/dL (8.5-10.3); CREATININE 0.8 mg/dL (0.6-1.2); TOTAL PROTEIN 6.1 g/dL (6.7-8.2)
[2019-04-23] MEDS ORDERED: SODIUM CHLORIDE 0.9% 1,000 ML IV ONE (09:31)
[2019-04-23] MEDS ORDERED: HYDROmorphone 1 MG/ML CARPUJECT IVP STA ×3 (09:31→15:29)
--- NOTE | 2019-04-23 09:32 | ED Physician Documentation ---
PD HPI ABD PAIN - Stated complaint Stated Complaint: ABD PX - Chief complaint Chief Complaint: Abd Pain - History obtained from History obtained from: Patient - History of Present Illness Timing - onset: Today Timing - duration: Days (1) Timing - details: Gradual onset Pain level max: 5 Pain level now: 4 Quality: Aching, Pain Location: Epigastric Radiation: No: Chest, , Lower back, Left flank, Left shoulder, Other, Right fl ank, Right shoulder Worsened by: Eating Associated symptoms: Nausea. No: Fever, Vomiting, Hematemesis, Diarrhea, Constipation - Treatment prior to arrival Treatment prior to arrival: Patient was recently admitted for pancreatitis. Discharged home yesterday. States pain recurred today. Unclear etiology of his pancreatitis at the last admission. He drinks alcohol, 1-2 drinks per day. He is on warfarin for atrial fibrillation. He apparently has a portal vein thrombosis as well. 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) HEENT: Tonsil/Adenoidectomy - Present Medications Home Medications: Ambulatory Orders Medication Instructions Recorded Confirmed Felodipine [Felodipine ER] 10 mg PO BID 03/15/15 04/11/19 Metoprolol Succinate 50 mg PO DAILY 03/15/15 04/11/19 Albuterol Sulfate [Proventil Hfa 1 - 2 puffs INH Q4H PRN #1 inhaler 04/15/19 Inhaler] Folic Acid 1 mg PO DAILY tablet 04/15/19 Thiamine [Vitamin B-1] 100 mg PO DAILY tablet 04/15/19 Warfarin Sodium [Coumadin] 2 mg PO DAILY #15 tablet 04/15/19 metFORMIN [Glucophage] 500 mg PO ONCE 04/23/19 04/23/19 - Allergies Allergies/Adverse Reactions: Allergies Allergy/AdvReac Type Severity Reaction Status Date / Time No Known Drug Allergies Allergy Verified 04/23/19 08:33 - Social History Does the pt smoke?: No Smoking Status: Never smoker Does the pt drink ETOH?: Yes Does the pt have substance abuse?: No - Immunizations Immunizations are current?: Yes - POLST Patient has POLST: No POLST Status: Full Code PD ED PE NORMAL - Vitals Vital signs reviewed: Yes - General General: Alert and oriented X 3, No acute distress, Well developed/nourished - HEENT HEENT: Moist mucous membranes - Neck Neck: Supple, no meningeal sign - Cardiac Cardiac: RRR - Respiratory Respiratory: No respiratory distress, Clear bilaterally - Abdomen Abdomen: Soft, Non distended, Other (diffuse TTP, no peritoneal signs) - Derm Derm: Warm and dry, No rash - Extremities Extremities: No edema - Neuro Neuro: Alert and oriented X 3 - Psych Psych: Normal mood, Normal affect Results - Vitals Vitals: Vital Signs - 24 hr 04/23/19 04/23/19 04/23/19 08:31 10:33 13:23 Temperature 36.7 C Heart Rate 79 69 69 Respiratory 18 14 18 Rate Blood Pressure 123/73 150/65 H 141/87 H O2 Saturation 95 94 96 04/23/19 15:00 Temperature Heart Rate 69 Respiratory 18 Rate Blood Pressure 173/77 H O2 Saturation 97 Oxygen O2 Source Room air - Labs Labs: Laboratory Tests 04/23/19 04/23/19 04/23/19 09:00 09:00 09:00 WBC 12.0 H RBC 4.12 L Hgb 12.8 L Hct 37.6 L MCV 91.3 MCH 31.1 H MCHC 34.0 RDW 14.8 Plt Count 362 MPV 11.4 Neut # (Auto) 10.2 H Lymph # (Auto) 0.7 L Gooding # (Auto) 1.0 Eos # (Auto) 0.0 Baso # (Auto) 0.0 Absolute Nucleated RBC 0.00 Nucleated RBC % 0.0 PT 43.0 H INR 4.1 H Sodium 133 L Potassium 4.1 Chloride 92 L Carbon Dioxide 25 Anion Gap 16.0 H BUN 11 Creatinine 0.8 Estimated GFR (MDRD) 95 Glucose 278 H Calcium 8.1 L Total Bilirubin 4.4 H AST 65 H ALT 91 H Alkaline Phosphatase 352 H Total Protein 6.1 L Albumin 2.7 L Globulin 3.4 Albumin/Globulin Ratio 0.8 L Lipase 35 Urine Color Urine Clarity Urine pH Ur Specific [place] Urine Protein Urine Glucose (UA) Urine Ketones Urine Occult Blood Urine Nitrite Urine Bilirubin Urine Urobilinogen Ur Leukocyte Esterase Urine RBC Urine WBC Ur Squamous Epith Cells Urine Bacteria Urine Casts Urine Mucus Ur Microscopic Review Urine Culture Comments 04/23/19 09:41 WBC RBC Hgb Hct MCV MCH MCHC RDW Plt Count MPV Neut # (Auto) Lymph # (Auto) Gooding # (Auto) Eos # (Auto) Baso # (Auto) Absolute Nucleated RBC Nucleated RBC % PT INR Sodium Potassium Chloride Carbon Dioxide Anion Gap BUN Creatinine Estimated GFR (MDRD) Glucose Calcium Total Bilirubin AST ALT Alkaline Phosphatase Total Protein Albumin Globulin Albumin/Globulin Ratio Lipase Urine Color DK. ORANGE Urine Clarity HAZY Urine pH 5.5 Ur Specific [place] Urine Protein Urine Glucose (UA) Urine Ketones Urine Occult Blood Urine Nitrite Urine Bilirubin LARGE H Urine Urobilinogen Ur Leukocyte Esterase Urine RBC 0-5 Urine WBC 6-10 H Ur Squamous Epith Cells RARE Squamous Urine Bacteria Moderate H Urine Casts 0-2 Hyaline Casts Urine Mucus Moderate Strands Ur Microscopic Review INDICATED Urine Culture Comments INDICATED - Rads (name of study) RUQ US Radiology: Prelim report reviewed, EMP read contemporaneously, See rad report (1. A 6.5 cm region of undulating fluid was measured along the pancreatic head did not peristalse. Question fluid filled and distended proximal duodenum or peripancreatic collection. Consider CT. 2. Small amount of ascites. 3. Gallbladder adenomyomatosis. ) CT abd/pelvis Radiology: Prelim report reviewed, EMP read contemporaneously, See rad report (Changes consistent with extensive severe pancreatitis with increased size of pancreas and moderate to large amount of fluid around the pancreas, new from earlier studies. Small to moderate amount of ascites in the abdomen and pelvis, also new. Mild dilatation of intrahepatic bile ducts. Normal gallbladder. Mildly dilated fluid-filled stomach with stomach wall thickening, likely secondary to inflammatory changes from adjacent pancreatitis. ) PD MEDICAL DECISION MAKING - ED course Complexity details: reviewed old records, reviewed results, re-evaluated patient, considered differential, d/w patient, d/w customs consultant ED course: 74-year-old male with severe pancreatitis. Given Zosyn and Flagyl. Leukocytosis as well. No fever. Pain well controlled. Kept n.p.o. Has a portal vein thrombosis as well. Discussed the case with Dr. Glass, hospitalist here who recommends transfer for higher level of care. Discussed the case with Dr. Ocampo, hospitalist at [facility] [place] [facility] COBRA forms completed. This document was made in part using voice recognition software. While efforts are made to proofread this document, sound alike and grammatical errors may occu r. Departure - Departure Disposition: 02 Transfer Acute Care Hosp Clinical Impression: Alcohol use, Portal vein thrombosis Pancreatitis Qualifiers: Chronicity: acute Pancreatitis type: alcohol induced Acute pancreatitis complication: infected necrosis Qualified Code(s): K85.22 - Alcohol induced acute pancreatitis with infected necrosis Condition: Stable
[2019-04-23 09:54] LABS: PH,URINE 5.5 PH (5.0-7.5)
[2019-04-23 10:01] LABS: CLARITY,URINE HAZY (CLEAR)
[2019-04-23 10:02] LABS: BILIRUBIN,URINE LARGE (NEGATIVE); ICTOTEST,URINE POSITIVE
[2019-04-23 10:03] LABS: BACTERIA,URINE Moderate /HPF (None Seen); CASTS, URINE 0-2 Hyaline Casts /LPF; MUCUS,URINE Moderate Strands; RBC,URINE 0-5 /HPF (0-5); SQUAMOUS EPITHELIAL CELL,UR RARE Squamous (<= Few)
--- NOTE | 2019-04-23 11:11 | Ultrasound Report ---
Reason: epigastric abd pain Procedure Date: 04/23/2019 Accession Number: [id number] / [id number] Procedure: US - Abdomen Limited CPT Code: Final Report FULL RESULT: EXAM: ABDOMEN ULTRASOUND LIMITED, RUQ EXAM DATE: 04/23/2019 10:43 AM. CLINICAL HISTORY: Epigastric abd pain. Duration 1 day. History of pancreatitis, hypertension and diabetes. COMPARISON: CHEST ANGIO 04/14/2019 8:16 PM ABDOMEN W/WO 04/12/2019 12:48 PM. TECHNIQUE: Real-time scanning was performed with static images obtained. FINDINGS: Liver: Heterogeneous hepatic echotexture. No focal mass. Right liver lobe measured 14.8 cm. Main portal vein flow: Hepatopetal. Gallbladder: Comet tail artifact from adenomyomatosis. No stones, wall thickening, or sonographic Duenas's sign. Biliary System: CBD measures 13 mm. No intrahepatic or extrahepatic ductal dilatation. Other: Right kidney measured 11.6 cm longitudinally, and demonstrated no evidence for hydronephrosis. Small 1 cm simple right upper renal cyst. Trace ascites. Undulating region of fluid along pancreatic head measuring up to 6.5 x 5.8 x 5.8 cm. No peristalsis evident. IMPRESSION: 1. A 6.5 cm region of undulating fluid was measured along the pancreatic head did not peristalse. Question fluid filled and distended proximal duodenum or peripancreatic collection. Consider CT. 2. Small amount of ascites. 3. Gallbladder adenomyomatosis. RADIA
[2019-04-23] MEDS ORDERED: IOVERSOL 320 100 ML VIAL IVP ONE ×2 (11:54→16:06)
--- NOTE | 2019-04-23 13:27 | CT Report ---
Reason: abd pain Procedure Date: 04/23/2019 Accession Number: [id number] / [id number] Procedure: CT - Abdomen/Pelvis W CPT Code: Final Report FULL RESULT: EXAM: CT ABDOMEN AND PELVIS WITH CONTRAST EXAM DATE: 04/23/2019 12:17 PM. CLINICAL HISTORY: Midline abdominal pain today in a 74-year-old male. COMPARISONS: ABDOMEN CT W/WO 04/12/2019 12:48 PM. ABDOMEN ULTRASOUND LIMITED 04/23/2019 9:52 AM, and earlier studies. TECHNIQUE: Emergent axial helical CT imaging was performed through the abdomen and pelvis. IV contrast: OPTI 320 100 mL. Enteric contrast: None. Reconstructions: Coronal and sagittal. In accordance with CT protocol optimization, one or more of the following dose reduction techniques were utilized for this exam: automated exposure control, adjustment of mA and/or KV based on patient size, or use of iterative reconstructive technique. FINDINGS: Lung Bases: Unremarkable. Liver: Normal size and contour. No mass or cyst. Small amount of ascites around the liver superiorly and laterally, new prior study. Gallbladder/Bile Ducts: No gallstones or wall thickening. Mildly dilated intrahepatic bile ducts and extrahepatic ducts extending to the pancreas, new from prior study. Spleen: Normal. Pancreas: Enlarged inflammatory pancreas with moderate to large amount of adjacent ascites, new from earlier studies. No definite solid mass. Adrenal Glands: Normal. Kidneys: Small amount of ascites around both kidneys, new from earlier studies. Otherwise normal. No masses, nephrolithiasis, hydroureter or hydronephrosis. Peritoneal Cavity/Bowel: Mildly to moderately thick-walled stomach with moderate amount of fluid. No mass. No free air or adenopathy. No small or large bowel dilatation. Pelvic Organs: Moderate amount of free fluid in the pelvis, new from earlier studies. Urinary bladder grossly unremarkable. Not enlarged prostate. Vasculature: No aneurysms or other significant abnormality. Bones: No significant abnormality. Other: None. IMPRESSION: Changes consistent with extensive severe pancreatitis with increased size of pancreas and moderate to large amount of fluid around the pancreas, new from earlier studies. Small to moderate amount of ascites in the abdomen and pelvis, also new. Mild dilatation of intrahepatic bile ducts. Normal gallbladder. Mildly dilated fluid-filled stomach with stomach wall thickening, likely secondary to inflammatory changes from adjacent pancreatitis. RADIA
[2019-04-23] MEDS ORDERED: PIPERACILLIN/TAZOBACTAM 3.375 GM in SODIUM CHLORIDE 0.9% MINIBAG 100 ML IV STA (13:40)
[2019-04-23] MEDS ORDERED: metroNIDAZOLE 500 MG/100 ML 500 MG/100 ML BAG IV ONE (13:40)
[2019-04-23 13:56] LABS: INR 4.1 (0.8-1.2)
[2019-04-23 18:20] VITALS: BP 131/58
== END 2019-04-23 15:30 | disposition short-term general hospital (02) ==
LOC: ED 08:20
DX: K85.22 Alcohol induced acute pancreatitis with infected necrosis (principal); F10.988 Alcohol use, unspecified with other alcohol-induced disorder; I81 Portal vein thrombosis; I10 Essential (primary) hypertension; I48.91 Unspecified atrial fibrillation; Z79.01 Long term (current) use of anticoagulants
CPT/HCPCS: 36415; 74177; 76705; 80053; 81001; 83690; 85025; 85610; 87086; 93005; 96365; 96375; 96376; 99285; J1170; Q9967; 81003